=== PATIENT | male | born 1975 | race Hispanic/Latino ===

== ENCOUNTER 2017-05-08 02:09 | Inpatient (IN) | payer OTHER ==
[~2017-05-08] VITALS: Ht 165.1 cm; Wt 90.7 kg
[2017-05-08] VITALS (17 sets, daily range): BP systolic 123–149; BP diastolic 84–108
--- NOTE | 2017-05-08 02:33 | ED Chest Pain ---
General Stated Complaint: SOB,LEFT SIDE PAIN Source: patient, family Exam Limitations: language barrier (interpretation by family members) History of Present Illness Time seen by provider: 02:29 Initial Comments Patient reports for the last 3-4 weeks he has felt crummy and on the May he started having some left chest pain under his armpit that made it worse whenever he took a deep breath or coughed. He's had a cough but it's been dry nonproductive. No fevers chills nausea vomiting or exposure to anyone else sick. 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 He has no cardiac history he smokes only occasionally no thyroid her blood pressure that he knows of. He does not drink for the past 6 years and never used IV drugs. He does not recall any trauma hurting it or being in a car wreck strengthening similar to that. Allergies and Home Medications Allergies Coded Allergies: No Known Drug Allergies (Unverified , 05/08/17) Review of Systems Constitutional: chills, diaphoresis, fever, malaise EENTM: No Ear Pain, No Nose Congestion, No Nose Pain Respiratory: Cough (nonproductive.), Shortness of Air, Denies Wheezing Cardiovascular: Chest Pain (left chest wall worse on inspiration), Denies Edema , Denies Irregular Heart Rate, Denies Palpitations Gastrointestinal: Denies Abdomen Distended, Denies Abdominal Pain, Denies Diarrhea, Denies Nausea Genitourinary: Denies Burning, Denies Discharge Musculoskeletal: No back pain, No joint pain Skin: No pruritus, No rash Psychiatric/Neurological: Denies Headache, Denies Numbness Past Nvecjmt-Cecgzo-Snuuce Hx Patient Social History Alcohol Use: Denies Use (stop drinking 6 years ago.) Recreational Drug Use: No Smoking Status: Former Smoker (stop smoking 6 years ago.) Recent Foreign Travel: No Contact w/Someone Who Travel: No Physical Exam Vital Signs Vital Sign - Last 12Hours 05/08/17 05/08/17 02:25 03:10 Temp 102.8 Pulse 128 Resp 24 B/P (MAP) 154/85 Pulse Ox 94 O2 Delivery Room Air O2 Flow Rate 2.00 Capillary Refill : General Appearance: WD/WN, Anxious, Moderate Distress HEENT: PERRL/EOMI, Pharynx Normal Neck: Full Range of Motion, Supple Respiratory: Accessory Muscle Use, Decreased Breath Sounds (especially along left lower base), No Pleural Rub, No Rales, Respiratory Distress (moderate), No Wheezing Cardiovascular: Regular Rate, Rhythm, No Edema Gastrointestinal: Normal Bowel Sounds, Soft Extremity: Normal Capillary Refill, Non Tender, No Calf Tenderness, No Pedal Edema Neurologic/Psychiatric: Alert, Oriented x3 Skin: Normal Color, Warm/Dry Focused Exam Evaluation Sepsis Stage: Sepsis Possible Source: Pulmonary Time of Focused Exam: 06:44 Respiratory: No Crackles, No Rales, No Respiratory Distress, No Wheezing Cardiovascular: Regular Rate, Rhythm (tachycardia), No Edema, No Murmur, Normal Peripheral Pulses, Tachycardia Capillary Refill: Less Than 3 Seconds Peripheral Pulses: 3+ Dorsalis Pedis (R), 3+ Left Dors-Pedis (L), 3+ Radial Pulses (R), 3+ Radial Pulses (L) Skin: normal color, warm/dry, other (chest tube left axilla) Lactic Acid Level Laboratory Tests Test 05/08/17 02:40 Lactic Acid Level 1.36 MMOL/L (0.50-2.00) Chest Tube : Chest Tube Position: Left Chest Tube Location: Mid-Axillary Chest Size of Tunisian Tube (cm): 28 Chest Tube Procedure: betadine prep, sterile drapes applied, sterile dressing applied Anesthesia: 1% Lidocaine Volume Anesthetic (ccs): 5 Lora of Air Beltrami: Yes Number of Attempts: 1 Time of Successful Intubation: 04:30 Tube Drainage: source sinus and fogging Tube Sutured to Skin: Yes (pearling) Post Procedure CXR?: Yes Progress 18 cm of chest wall. 1 mg Versed was given for anxiolysis. The patient received 75 g of fentanyl. Another 50 g were given. 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 He accepted the risks and signed consent and we clean the site with chlorhexidine followed by iodine. Sterile drapes were then placed and using gowns masks and headgear the ribs were palpated and between the fourth and fifth rib 5 cc of lidocaine was injected first with a wheal and then was directed down to the between the intercostal space. 11 blade was then used to make a one half senna meter incision horizontally in the midaxillary line at the fourth fifth intercostal space. Using blunt dissection with my fingers and a hemostat tunnel was created down to the ribs and then using the hemostat to press through the intercostal space between the fifth and sixth rib a lora of air was felt in my finger was placed in there all where a sliding lung tissue was felt. A 28 Tunisian chest tube was then placed using a large clamp and immediately the tube fogged and there was a lora of air. The tube was then hooked up to a water seal and hooked to wall suction. Xeroform gauze was held around the site and then a Prolene suture was placed in a [id number] with a loop around the tube multiple times and secured tightly against the chest at 18 cm. Sterile dressing was then applied of gauze and tape. Good suction was assured at the water seal and the patient was marginally more comfortable. Post procedure chest x-ray was obtained and the tube was seen traveling along the line of the diaphragm and the lung was still not totally reinflated. Patient's sats stayed in the mid 90s the entire procedure. Patient did have some discomfort with procedure but tolerated otherwise well. Blood loss was 20to [address] Nguyen was called at 04 45 to come assess the patient. Critical Care Note Critical Care Start Time: 05:00 Stop Time: 05:40 Total Time (minutes) 40 mins Progress Laboratory distress with decreased breath sounds on left lower chest. Chest x- ray was not incredibly helpful so ultrasound bedside was placed and there was good lung sliding on the right side but not on the left. At that time decided to place a chest tube. See operative note. Post tube x-ray obtained and consultation was made with Dr. Nguyen who came and saw the patient examined images. Then discussed the images with stat read and then discussed stat read's read with Dr. Nguyen who feels patient is stable to be treated as a pneumonia and put inpatient. Progress/Results/Core Measures Results/Orders Lab Results Laboratory Tests Test 05/08/17 02:40 05/08/17 06:00 Range/Units White Blood Count 17.9 H 4.3-11.0 10^3/uL Red Blood Count 4.79 4.35-5.85 10^6/uL Hemoglobin 13.6 13.3-17.7 G/DL Hematocrit 40 40-54 % Mean Corpuscular Volume 84 80-99 FL Mean Corpuscular Hemoglobin 28 25-34 PG Mean Corpuscular Hemoglobin Concent 34 32-36 G/DL Red Cell Distribution Width 12.0 10.0-14.5 % Platelet Count 309 130-400 10^3/uL Mean Platelet Volume 10.1 7.4-10.4 FL Neutrophils (%) (Auto) 77 H 42-75 % Lymphocytes (%) (Auto) 10 L 12-44 % Monocytes (%) (Auto) 12 0-12 % Eosinophils (%) (Auto) 1 0-10 % Basophils (%) (Auto) 0 0-10 % Neutrophils # (Auto) 13.7 H 1.8-7.8 X 10^3 Lymphocytes # (Auto) 1.8 1.0-4.0 X 10^3 Monocytes # (Auto) 2.1 H 0.0-1.0 X 10^3 Eosinophils # (Auto) 0.2 0.0-0.3 10^3/uL Basophils # (Auto) 0.0 0.0-0.1 10^3/uL Neutrophils % (Manual) 74 % Lymphocytes % (Manual) 4 % Monocytes % (Manual) 14 % Eosinophils % (Manual) 2 % Basophils % (Manual) 0 % Band Neutrophils 0 % Reactive Lymphocytes 6 % Blood Morphology Comment NORMAL Prothrombin Time 14.3 12.2-14.7 SEC INR Comment 1.1 0.8-1.4 Activated Partial Thromboplast Time 30 24-35 SEC D-Dimer 0.77 H 0.00-0.49 UG/ML Sodium Level 137 135-145 MMOL/L Potassium Level 3.9 3.6-5.0 MMOL/L Chloride Level 103 98-107 MMOL/L Carbon Dioxide Level 20 L 21-32 MMOL/L Anion Gap 14 5-14 MMOL/L Blood Urea Nitrogen 15 7-18 MG/DL Creatinine 0.99 0.60-1.30 MG/DL Estimat Glomerular Filtration Rate > 60 BUN/Creatinine Ratio 15 Glucose Level 211 H 70-105 MG/DL Lactic Acid Level 1.36 0.50-2.00 MMOL/L Calcium Level 9.3 8.5-10.1 MG/DL Total Bilirubin 1.8 H 0.1-1.0 MG/DL Aspartate Amino Transf (AST/SGOT) 20 5-34 U/L Alanine Aminotransferase (ALT/SGPT) 45 0-55 U/L Alkaline Phosphatase 98 40-136 U/L Troponin I < 0.30 <0.30 NG/ML Total Protein 8.2 6.4-8.2 GM/DL Albumin 4.2 3.2-4.5 GM/DL Urine Color YELLOW Urine Clarity CLEAR Urine pH 5 5-9 Urine Specific [place] 1.020 1.016-1.022 Urine Protein 2+ H NEGATIVE Urine Glucose (UA) NEGATIVE NEGATIVE Urine Ketones NEGATIVE NEGATIVE Urine Nitrite NEGATIVE NEGATIVE Urine Bilirubin NEGATIVE NEGATIVE Urine Urobilinogen NORMAL NORMAL MG/DL Urine Leukocyte Esterase NEGATIVE NEGATIVE Urine RBC (Auto) 2+ H NEGATIVE Urine RBC RARE /HPF Urine WBC NONE /HPF Urine Squamous Epithelial Cells NONE /HPF Urine Crystals NONE /LPF Urine Bacteria NEGATIVE /HPF Urine Casts PRESENT /LPF Urine Hyaline Casts RARE /LPF Urine Mucus NEGATIVE /LPF Urine Culture Indicated NO My Orders Orders - CHANDAN QUINTANA Cbc With Automated Diff (05/08/17 02:34) Comprehensive Metabolic Panel (05/08/17 02:34) Lactic Acid Analyzer (05/08/17 02:34) Blood Culture (05/08/17 02:34) Sputum Culture (05/08/17 02:34) Ua Culture If Indicated (05/08/17 02:34) Protime With Inr (05/08/17 02:34) Partial Thromboplastin Time (05/08/17 02:34) O2 (05/08/17 02:34) Saline Lock/Iv-Start (05/08/17 02:34) Saline Lock/Iv-Start (05/08/17 02:34) Vital Signs Adult Sepsis Patie Q1HR (05/08/17 02:34) Remove Rings In Anticipation O (05/08/17 02:34) Chest Pa/Lat (2 View) (05/08/17 02:34) Fentanyl Injection (Sublimaze Injection (05/08/17 02:45) Troponin I (05/08/17 02:36) Fibrin Degradation Products (05/08/17 02:36) Ekg Tracing (05/08/17 02:36) Manual Differential (05/08/17 02:40) Fentanyl Injection (Sublimaze Injection (05/08/17 03:24) Saline Lock/Iv-Start (05/08/17 03:24) Ns Iv 1000 Ml (Sodium Chloride 0.9%) (05/08/17 03:24) Ns Iv 1000 Ml (Sodium Chloride 0.9%) (05/08/17 03:19) Midazolam Injection (Versed Injection) (05/08/17 03:57) Midazolam Injection (Versed Injection) (05/08/17 04:01) Chest 1 View, Ap/Pa Only (05/08/17 04:47) Fentanyl Injection (Sublimaze Injection (05/08/17 05:00) Fentanyl Injection (Sublimaze Injection (05/08/17 05:00) Fentanyl Injection (Sublimaze Injection (05/08/17 05:00) Ct Angio Chest W (05/08/17 05:05) Iohexol Injection (Omnipaque 350 Mg/Ml 1 (05/08/17 05:15) Ns (Ivpb) (Sodium Chloride 0.9% Ivpb Bag (05/08/17 05:15) Vancomycin Injection (Vancomycin Injecti (05/08/17 06:30) Piperacillin Sodium/Tazobactam (Zosyn Vi (05/08/17 06:30) Medications Given in ED Current Medications Medications Dose Ordered Sig/Gregory Route Start Time Stop Time Status Last Admin Dose Admin Fentanyl Citrate 25 mcg ONCE PRN IVP 05/08/17 05:00 05/08/17 04:22 25 MCG Fentanyl Citrate 25 mcg ONCE PRN IVP 05/08/17 05:00 05/08/17 04:24 25 MCG Fentanyl Citrate 25 mcg ONCE PRN IVP 05/08/17 05:00 05/08/17 04:59 25 MCG Fentanyl Citrate 50 mcg ONCE ONCE IVP 05/08/17 02:45 05/08/17 02:46 DC 05/08/17 03:08 50 MCG Iohexol 125 ml ONCE ONCE IV 05/08/17 05:15 05/08/17 06:24 DC 05/08/17 05:45 125 ML Piperacillin Sod/ Tazobactam Sod 4.5 gm/Sodium Chloride 100 ml @ 200 mls/hr ONCE ONCE IV 05/08/17 06:30 05/08/17 06:59 DC 05/08/17 06:37 200 MLS/HR Sodium Chloride 100 ml ONCE ONCE IV 05/08/17 05:15 05/08/17 06:24 DC 05/08/17 05:45 80 ML Sodium Chloride 1,000 ml @ 0 mls/hr Q0M ONCE IV 05/08/17 03:24 05/08/17 03:25 DC 05/08/17 03:29 999 MLS/HR Vital Signs/I&O Vital Sign - Last 12Hours 05/08/17 05/08/17 05/08/17 05/08/17 02:25 03:08 03:10 06:56 Temp 102.8 102.8 Pulse 128 102 Resp 24 34 B/P (MAP) 154/85 Pulse Ox 94 88 95 O2 Delivery Room Air Nasal Cannula Room Air O2 Flow Rate 2.00 Progress Note #1: Time: 03:26 Progress Note Fever tachycardia and shortness of air. We'll workup for sepsis but his chest x- ray is worrisome for his right-sided tracheal deviation and very poor inspiration. Not sure if that poor inspiration from pain versus possible pneumothorax. Because of her unborn status and a fever and possibility of a pneumothorax we'll put in 25 mask on him and bring him in isolation with concern of tuberculosis or other infectious disease. Pulmonary embolism is also in the running. Give Him a liter fluids and treat his pain and obtain a CTA. Progress Note #2: Time: 06:17 Progress Note Spoke with Vladislav Escobedo, stat read radiologist who felt that the patient's tube is sitting just above the diaphragm and there is no evidence of PE seen. 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 He sees a lot of platelike atelectasis. He does not see a traumatic hernia. Discussed this with Dr. Nguyen who feels the patient would be okay to be treated here and followed by Dr. Atwood, pulmonology. The patient is much more relaxed breathing slower and feeling much better. Pain is controlled. Progress Note #3: Time: 07:33 Progress Note Patient's breathing is no longer labored and he is without pain. He is doing very well and nursing transport to the ICU bed 1 is with him proparacaine to take him up. His vitals are stable however he is still modestly tachycardic in the low 100s. His sats stayed above 93% ever since having the chest tube placed. Diagnostic Imaging Diagonstic Imaging: Xray Plain Films/CT/US/NM/MRI: chest Comments Modest right-sided tracheal deviation with a little bit of rotation to the right. Very poor inspiration versus possible pneumothorax. No obvious infiltrates seen. Cardiac silhouette and mediastinum are obscured and difficult to delineate Diagonstic Imaging: CT Plain Films/CT/US/NM/MRI: chest (CTA) Comments Elevation left hemidiaphragm, no PE seen. No aneurysm or dissection. Left sided thoracostomy tube with a small left pneumothorax. Tube terminating in the medial inferior pleural space. I basilar platelike atelectasis. Left lower lobe atelectasis with possible superimposed pneumonia. Heart size normal without pericardial effusion. Reviewed: Reviewed [place] Study, Reviewed by Me, Discussed w/ Radiologist (Vladislav Escobedo) Departure Communication Time/Spoke to Admitting Phy: 05:45 Communication Okay to admit the patient to ICU. Pneumonia Admission Pseudomonal Risk: No known risk Antibiotic last taken at: 0600 Patient allergy/sensitivity/re: None Pneumonia order set available: CAP ICU Notes Vancomycin and Zosyn Impression Impression: Primary Impression: Community acquired pneumonia Additional Impression: Sepsis Qualified Codes: A41.9 - Sepsis, unspecified organism Disposition: ADMITTED INPATIENT (ICU) Condition: Improved Decision to Admit Reason: Admit from ER (General) Decision to Admit/Date: May 08, 2017 Time/Decision to Admit Time: 06:47 Departure-Patient Inst. Referrals: NO,LOCAL PHYSICIAN (PCP) Primary Care Physician CHANDAN QUINTANA May 08, 2017 02:33
[2017-05-08] MEDS ORDERED: fentaNYL INJECTION 100 MCG/2 ML AMP IVP ONE (02:45)
[2017-05-08 02:54] LABS: BASOPHILS % (AUTO) 0 % (0-10); EOSINOPHILS # (AUTO) 0.2 10^3/uL (0.0-0.3); EOSINOPHILS % (AUTO) 1 % (0-10); LYMPHOCYTES # (AUTO) 1.8 X 10^3 (1.0-4.0); LYMPHOCYTES % (AUTO) 10 % (12-44); MEAN CORPUSCULAR HEMOGLOBIN 28 PG (25-34); MEAN CORPUSCULAR HGB CONC 34 G/DL (32-36); MEAN CORPUSCULAR VOLUME 84 FL (80-99); MEAN PLATELET VOLUME 10.1 FL (7.4-10.4); MONOCYTES # (AUTO) 2.1 X 10^3 (0.0-1.0); MONOCYTES % (AUTO) 12 % (0-12); NEUTROPHILS # (AUTO) 13.7 X 10^3 (1.8-7.8); NEUTROPHILS % (AUTO) 77 % (42-75); PLATELET COUNT 309 10^3/uL (130-400); RED BLOOD COUNT 4.79 10^6/uL (4.35-5.85); WHITE BLOOD COUNT 17.9 10^3/uL (4.3-11.0)
[2017-05-08 03:05] LABS: INR 1.1 (0.8-1.4); PROTHROMBIN TIME PATIENT 14.3 SEC (12.2-14.7)
[2017-05-08 03:15] LABS: ALANINE AMINOTRANSFERASE 45 U/L (0-55); ALBUMIN 4.2 GM/DL (3.2-4.5); ANION GAP 14 MMOL/L (5-14); ASPARTATE AMINO TRANSFERASE 20 U/L (5-34); BILIRUBIN,TOTAL 1.8 MG/DL (0.1-1.0); BLOOD UREA NITROGEN 15 MG/DL (7-18); BUN/CREATININE RATIO 15; CALCIUM 9.3 MG/DL (8.5-10.1); CARBON DIOXIDE 20 MMOL/L (21-32); CHLORIDE 103 MMOL/L (98-107); CREATININE SERUM 0.99 MG/DL (0.60-1.30); GFR ESTIMATED > 60; GLUCOSE 211 MG/DL (70-105); POTASSIUM 3.9 MMOL/L (3.6-5.0); SODIUM 137 MMOL/L (135-145); TOTAL PROTEIN 8.2 GM/DL (6.4-8.2)
[2017-05-08] MEDS ORDERED: NS IV 1000 ML 1,000 ML ONE (03:19)
[2017-05-08 03:21] LABS: BAND NEUTROPHILS 0 %; BASOPHILS % (MANUAL) 0 %; EOSINOPHILS % (MANUAL) 2 %; LYMPHOCYTES % (MANUAL) 4 %; NEUTROPHILS % (MANUAL) 74 %; REACTIVE LYMPHOCYTES 6 %; TROPONIN I < 0.30 NG/ML (<0.30)
[2017-05-08] MEDS ORDERED: fentaNYL INJECTION 100 MCG/2 ML AMP IVP STA (03:24)
[2017-05-08] MEDS ORDERED: NS IV 1000 ML 1,000 ML IV ONE (03:24)
[2017-05-08] MEDS ORDERED: MIDAZOLAM 2 MG/2 ML (VERSED) VIAL ONE (03:57)
[2017-05-08] MEDS ORDERED: MIDAZOLAM 10 MG/2 ML (VERSED) VIAL IVP STA (04:01)
[2017-05-08] MEDS: fentaNYL INJECTION 100 MCG/2 ML AMP IVP PRN (04:22)
[2017-05-08] MEDS ORDERED: fentaNYL INJECTION 100 MCG/2 ML AMP IVP PRN ×2 (05:00)
[2017-05-08] MEDS ORDERED: NS 100 ML (IVPB) BAG IV ONE (05:15)
[2017-05-08] MEDS ORDERED: IOHEXOL 350 MG/ML 150 ML (OMNIPAQUE 350) VIAL IV ONE (05:15)
[2017-05-08 06:12] LABS: BILIRUBIN,URINE NEGATIVE (NEGATIVE); KETONES,URINE NEGATIVE (NEGATIVE); LEUKOCYTE ESTERASE ,URINE NEGATIVE (NEGATIVE); NITRITE,URINE NEGATIVE (NEGATIVE); PH,URINE 5 (5-9); PROTEIN,URINE 2+ (NEGATIVE); UROBILINOGEN,URINE NORMAL (NORMAL)
[2017-05-08 06:20] LABS: HYALINE CASTS, URINE RARE /LPF
[2017-05-08] MEDS ORDERED: PIPERACILLIN SODIUM/TAZOBACTAM 4.5 GM in NS (IVPB) 100 ML IV ONE (06:30)
[2017-05-08] MEDS ORDERED: VANCOMYCIN INJECTION 1,500 MG in NS IV 500 ML 500 ML IV SCH (06:30)
--- NOTE | 2017-05-08 07:16 | Consultation ---
History of Present Illness History of Present Illness Patient Consulted On(jenniffer/time) 05/08/17 07:11 Date Seen by Provider: May 08, 2017 Time Seen by Provider: 05:00 History of Present Illness Consult by Dr. Burnette for pneumothorax. Patient is a 41 year old male that has been having difficulty breathing and chest pain for about 3 weeks. Pain would vary in intensity and was along left chest. Patient states lifting and deep breathing would make pain worse. Nothing really making it better. Fever yesterday and today, now 102.8. Denies any trauma or other sick contacts. Patient was in respiratory distress when came in and was not oxygenating well, decreased breath sounds on left side, chest x ray was worrisome of pneumothorax and bedside u/s performed and chest tube performed by Dr. Burnette. He reported air lora when entering chest and upon arrival patient breathing easier and o2 saturation had improved. Medication Technician used. Allergies and Home Medications Allergies Coded Allergies: No Known Drug Allergies (Unverified , 05/08/17) Past Fbslcjg-Lpgnio-Zbsygr Hx Patient Social History Alcohol Use: Denies Use (stop drinking 6 years ago.) Recreational Drug Use: No Smoking Status: Former Smoker (stop smoking 6 years ago.) Type Used: Cigarettes Recent Foreign Travel: No Contact w/Someone Who Travel: No Recent Infectious Disease Expo: No Recent Hopitalizations: No Seasonal Allergies Seasonal Allergies: No Surgeries HX Surgeries: No Respiratory Hx Respiratory Disorders: No Cardiovascular Hx Cardiac Disorders: No Neurological Hx Neurological Disorders: No Genitourinary Hx Genitourinary Disorders: No Gastrointestinal Hx Gastrointestinal Disorders: No Musculoskeletal Hx Musculoskeletal Disorders: No Endocrine Hx Endocrine Disorders: No HEENT HX ENT Disorders: No Psychosocial Hx Psychiatric Problems: No Family Medical History Significant Family History: No Pertinent Family Hx Review of Systems-General Constitutional: see HPI, fever EENTM: no symptoms reported Respiratory: see HPI Cardiovascular: no symptoms reported Gastrointestinal: no symptoms reported Genitourinary: no symptoms reported Musculoskeletal: no symptoms reported Skin: no symptoms reported Psychiatric/Neurological: No Symptoms Reported Physical Exam-General Problems Physical Exam Vital Signs Vital Sign - Last 12Hours 05/08/17 05/08/17 02:25 03:10 Temp 102.8 Pulse 128 Resp 24 B/P (MAP) 154/85 Pulse Ox 94 O2 Delivery Room Air O2 Flow Rate 2.00 Capillary Refill : Less Than 3 Seconds General Appearance: mild distress HEENT: normal ENT inspection Neck: supple Respiratory: respiratory distress (left sided chest tube) Cardiovascular: tachycardia Gastrointestinal: non tender, soft, no organomegaly Rectal: deferred Back: normal inspection Extremities: non-tender, normal inspection Neurologic/Psychiatric: no motor/sensory deficits, alert, normal mood/affect, oriented x 3 Skin: warm/dry Data Review Labs Laboratory Tests 05/08/17 02:40: White Blood Count 17.9H, Red Blood Count 4.79, Hemoglobin 13.6, Hematocrit 40, Mean Corpuscular Volume 84, Mean Corpuscular Hemoglobin 28, Mean Corpuscular Hemoglobin Concent 34, Red Cell Distribution Width 12.0, Platelet Count 309, Mean Platelet Volume 10.1, Neutrophils (%) (Auto) 77H, Lymphocytes (%) (Auto) 10L, Monocytes (%) (Auto) 12, Eosinophils (%) (Auto) 1, Basophils (%) (Auto) 0, Neutrophils # (Auto) 13.7H, Lymphocytes # (Auto) 1.8, Monocytes # (Auto) 2.1H, Eosinophils # (Auto) 0.2, Basophils # (Auto) 0.0, Neutrophils % (Manual) 74, Lymphocytes % (Manual) 4, Monocytes % (Manual) 14, Eosinophils % (Manual) 2, Basophils % (Manual) 0, Band Neutrophils 0, Reactive Lymphocytes 6, Blood Morphology Comment NORMAL, Prothrombin Time 14.3, INR Comment 1.1, Activated Partial Thromboplast Time 30, D-Dimer 0.77H, Sodium Level 137, Potassium Level 3.9, Chloride Level 103, Carbon Dioxide Level 20L, Anion Gap 14, Blood Urea Nitrogen 15, Creatinine 0.99, Estimat Glomerular Filtration Rate > 60, BUN/ Creatinine Ratio 15, Glucose Level 211H, Lactic Acid Level 1.36, Calcium Level 9.3, Total Bilirubin 1.8H, Aspartate Amino Transf (AST/SGOT) 20, Alanine Aminotransferase (ALT/SGPT) 45, Alkaline Phosphatase 98, Troponin I < 0.30, Total Protein 8.2, Albumin 4.2 05/08/17 06:00: Urine Color YELLOW, Urine Clarity CLEAR, Urine pH 5, Urine Specific [place] 1.020, Urine Protein 2+H, Urine Glucose (UA) NEGATIVE, Urine Ketones NEGATIVE, Urine Nitrite NEGATIVE, Urine Bilirubin NEGATIVE, Urine Urobilinogen NORMAL, Urine Leukocyte Esterase NEGATIVE, Urine RBC (Auto) 2+H, Urine RBC RARE, Urine WBC NONE, Urine Squamous Epithelial Cells NONE, Urine Crystals NONE, Urine Bacteria NEGATIVE, Urine Casts PRESENT, Urine Hyaline Casts RARE, Urine Mucus NEGATIVE, Urine Culture Indicated NO Assessment/Plan Assessment/Plan Assessment/Plan Respiratory distress possible pneumothorax s/p left thoracostomy tube placement left lower lobepneumonia leukocytosis fever sepsis patient presented with respiratory distress and chest tube placed in ED by Dr. Burnette for concern of tension pneumothorax. At this time he is more comfortable and o2 saturation 95%. Patient to go for CT chest which demonstrates small pneumo on left and likely left lower lobe pneumonia. Chest tube appears to be just above diaphragm. Patient to be admitted for medical and thoracostomy tube management No surgical intervention needed. Clinical Quality Measures Pneumonia: Pseudomonal Risk: No known risk Antibiotic last taken at: 0600 CJ TRINIDAD DO May 08, 2017 07:16
--- NOTE | 2017-05-08 07:21 | Diagnostic Imaging Report ---
PROCEDURE: CT angiography of the chest with contrast. TECHNIQUE: Multiple contiguous axial images were obtained through the chest after uneventful bolus administration of intravenous contrast. Reconstructed CTA MIP acquisitions were also performed. INDICATION: Chest pain and shortness of breath. FINDINGS: There is elevation of the left hemidiaphragm. There is suboptimal evaluation of the pulmonary arteries due to respiratory motion. There are however no definitive filling defects seen within the pulmonary arteries to suggest pulmonary embolism. A left thoracostomy tube is in place. There is a small left pneumothorax. There is bibasilar subsegmental atelectasis and/or pneumonitis. There also appears to be more consolidated infiltrate in the left lung base which may reflect pneumonia. The heart size is normal. There is no pericardial fluid. Thoracic aorta is normal in caliber without evidence of an aneurysm. The visualized intra-abdominal structures are unremarkable. IMPRESSION: Suboptimal evaluation of the pulmonary arteries however no definitive filling defects to suggest pulmonary embolism. Bibasilar atelectasis and/or pneumonitis somewhat more consolidated in the left lung base. Superimposed pneumonia cannot be excluded. No other acute abnormality in the chest. Dictated by: Dictated on workstation # [id number]
--- NOTE | 2017-05-08 07:24 | Diagnostic Imaging Report ---
INDICATION: Left-sided chest tube placement. TECHNIQUE: Single view chest 4:45 AM. CORRELATION STUDY: 05/08/2017 FINDINGS: Since the prior imaging, a left-sided chest tube has been placed. A significant amount of subcutaneous gas over the left chest. No definitive pneumothorax. Continued opacification of the left mid and lower lung varela. Right lung field is hypoventilated with crowding of the lung bases. Heart size and mediastinum are generally stable but largely obscured. IMPRESSION: 1. Left-sided chest tube has been placed without significant pneumothorax. A significant amount of subcutaneous gas is present. 2. Hypoventilation with extensive crowding of the lung bases. Areas of atelectasis, infiltrate or contusion at the lung bases are present. Dictated by: Dictated on workstation # [id number]
--- NOTE | 2017-05-08 07:48 | Diagnostic Imaging Report ---
INDICATION: Chest pain and fever with shortness of breath. EXAM: PA and lateral views of the chest were obtained. FINDINGS: The heart size is normal. There is venous congestion. There is bibasilar atelectasis and/or pneumonitis, left greater than right. There is no pneumothorax. The mediastinum is unremarkable. IMPRESSION: Bibasilar atelectasis and/or pneumonitis, left greater than right. Moderate central pulmonary venous congestion. Dictated by: Dictated on workstation # [id number]
[2017-05-08] MEDS ORDERED: CATHETER FLUSH 10 ML SYR IV PRN (08:30)
[2017-05-08] MEDS ORDERED: ALPRAZolam 0.25 MG (XANAX) TAB PO PRN (10:15)
[2017-05-08] MEDS ORDERED: ONDANSETRON 4 MG/2 ML (SDV) Z0FRAN IVP PRN (10:15)
[2017-05-08] MEDS ORDERED: HYDROmorphone (DILAUDID) 2 MG/ML VIAL IVP PRN (10:15)
--- NOTE | 2017-05-08 11:22 | History & Physical-Hospitalist ---
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 Nguyen consulted and CT scan ensued. No significant pulmonary emboli noted on CT scan but patient appears to have pneumonia with the pneumothorax including leukocytosis and sepsis and I did order pain medication but tachypnea continues to Dr. Atwood will be consulted. Patient has been placed on empiric robotic some Zosyn and will be monitor closely in the meantime. I am able to communicate with him in medical Slovenian enough to reassure him and updated him on the plan. Source: patient Exam Limitations: language barrier Date Seen 05/08/17 Time Seen by Provider: 10:00 Attending Physician Aarti Conti DO PCP No,Local Physician Referring Physician Date of Admission May 08, 2017 at 07:04 Home Medications & Allergies Home Medications Reviewed patient Home Medication Reconciliation Form Allergies Allergies Coded Allergies No Known Drug Allergies (Unverified05/08/17) Past Ootcbkn-Wnsklg-Zmnugo Hx Patient Social History Employed/Student: employed Alcohol Use: Denies Use Recreational Drug Use: No Smoking Status: Current Everyday Smoker Type Used: Cigarettes Physical Abuse Screen: No Sexual Abuse: No Recent Foreign Travel: No Contact w/other who traveled: No Recent Hopitalizations: No Recent Infectious Disease Expo: No Seasonal Allergies Seasonal Allergies: No Surgeries HX Surgeries: No Respiratory Hx Respiratory Disorders: No Cardiovascular Hx Cardiovascular Disorders: No Neurological Hx Neurological Disorders: No Genitourinary Hx Genitourinary Disorders: No Gastrointestinal Hx Gastrointestinal Disorders: No Musculoskeletal Hx Musculoskeletal Disorders: No Endocrine Hx Endocrine Disorders: No HEENT HX ENT Disorders: No Cancer Hx Cancer: No Psychosocial Hx Psychiatric Problems: No Family Medical History Significant Family History: No Pertinent Family Hx Review of Systems Constitutional: see HPI, chills, diaphoresis, fever, malaise EENTM: no symptoms reported Respiratory: dyspnea on exertion, short of breath Cardiovascular: no symptoms reported Gastrointestinal: no symptoms reported Genitourinary: no symptoms reported Musculoskeletal: no symptoms reported Skin: no symptoms reported Psychiatric/Neurological: Anxiety All Other Systems Reviewed Negative Unless Noted: Yes Physical Exam Physical Exam Vital Signs Vital Sign - Last 12Hours 05/08/17 05/08/17 02:25 03:10 Temp 102.8 Pulse 128 Resp 24 B/P (MAP) 154/85 Pulse Ox 94 O2 Delivery Room Air O2 Flow Rate 2.00 Capillary Refill : Less Than 3 Seconds General Appearance: No Apparent Distress, WD/WN, Mild Distress (due to tachypnea) Eyes: Bilateral Eye Normal Inspection, Bilateral Eye PERRL HEENT: PERRL/EOMI, Normal ENT Inspection, Pharynx Normal Neck: Full Range of Motion, Normal Inspection, Non Tender, Supple, Carotid Bruit Respiratory: Chest Non Tender, No Accessory Muscle Use, No Respiratory Distress , Decreased Breath Sounds Cardiovascular: Regular Rate, Rhythm, No Edema, No Gallop, No JVD, No Murmur, Normal Peripheral Pulses Gastrointestinal: Normal Bowel Sounds, No Organomegaly, No Pulsatile Mass, Non Tender, Soft Back: Normal Inspection, No CVA Tenderness, No Vertebral Tenderness Extremity: Normal Capillary Refill, Normal Inspection, Normal Range of Motion, Non Tender, No Calf Tenderness, No Pedal Edema Neurologic/Psychiatric: Alert, Oriented x3, No Motor/Sensory Deficits, Normal Mood/Affect Skin: Normal Color, Warm/Dry Lymphatic: No Adenopathy Results Results/Procedures Lab Laboratory Tests 05/08/17 02:40 Assessment/Plan Admission Diagnosis Assessment: Sepsis due to pneumonia and leukocytosis and fever and chills with pneumothorax chest tube placed Smoker Assessment and Plan Plan: Pain medication of Dilaudid due to chest pain from tube smoking cessation SCDs Oxygen Nebulizer treatments Anxiolytic Antibiotics Check labs and chest x-ray daily Clinical Quality Measures DVT/VTE Risk/Contraindication: Risk Factor Score Per Nursin RFS Level Per Nursing on Admit: 2=Moderate Pneumonia: Pseudomonal Risk: No known risk Antibiotic last taken at: 0600 AARTI CONTI DO May 08, 2017 11:22
[2017-05-08] MEDS ORDERED: RT-ALBUTEROL/IPRATROPIUM 3 ML (DUONEB) VIAL INH SCH (13:45)
[2017-05-08] MEDS ORDERED: PHARMACY TO DOSE IV SCH (13:45)
[2017-05-08] MEDS: PIPERACILLIN SODIUM/TAZOBACTAM 4.5 GM in NS (IVPB) 100 ML IV SCH ×2 (13:50→20:31)
[2017-05-08] MEDS: NS IV 1000 ML 1,000 ML IV SCH ×2 (13:51→23:31)
--- NOTE | 2017-05-08 13:58 | Pulmonary Consultation ---
History of Present Illness History of Present Illness Date of Consultation 05/08/17 13:51 Time Seen by Provider: 13:51 Date of Admission History of Present Illness 41yo presented to ED secondary to CP and worsening SOB over last 3 wks worse with breathing. Pt only speaks Belarusian and family currently in the room do not speak Telugu either. Unable to obtain complete ROS. Fever in ED was 102.8. No trauma. CXR in ED shows prior to Chest tube shows bibasilar infiltrates, atelectasis and vascular congestion. PTX was dx in ED per clinical exam and symptoms. Left chest tube was placed. Pt is currently doing well and chest tube is in place. There is no air leak in chest tube system currently. Dr. Burnette reported air lora upon chest tube insertion and reported patient was breathing better. I am consulted for pulmonary management. Allergies and Home Medications Allergies Coded Allergies: No Known Drug Allergies (Unverified , 05/08/17) Past Npxeboy-Cfzrzp-Hskdpr Hx Patient Social History Alcohol Use: Denies Use Recreational Drug Use: No Smoking Status: Current Everyday Smoker Type Used: Cigarettes Recent Foreign Travel: No Contact w/Someone Who Travel: No Recent Infectious Disease Expo: No Recent Hopitalizations: No Physical Abuse Screen: No Sexual Abuse: No Seasonal Allergies Seasonal Allergies: No Surgeries HX Surgeries: No Respiratory Hx Respiratory Disorders: No Cardiovascular Hx Cardiac Disorders: No Neurological Hx Neurological Disorders: No Genitourinary Hx Genitourinary Disorders: No Gastrointestinal Hx Gastrointestinal Disorders: No Musculoskeletal Hx Musculoskeletal Disorders: No Endocrine Hx Endocrine Disorders: No HEENT HX ENT Disorders: No Cancer Hx Cancer: No Psychosocial Hx Psychiatric Problems: No Family Medical History Significant Family History: No Pertinent Family Hx Review of Systems Time Seen by Provider: 07:52 Exam Exam Vital Signs Date Time Temp Pulse Resp B/P (MAP) Pulse Ox O2 Delivery O2 Flow Rate FiO2 05/08/17 08:56 Nasal Cannula 2.00 05/08/17 08:00 95 Nasal Cannula 2.00 05/08/17 07:45 Nasal Cannula 2.00 05/08/17 07:45 98.2 Nasal Cannula 2.00 05/08/17 06:56 102 34 95 Room Air 05/08/17 03:10 88 Nasal Cannula 2.00 05/08/17 03:08 102.8 05/08/17 02:25 102.8 128 24 154/85 94 Room Air I & O 05/08/17 07:00 Intake Total 1000 ml Output Total 30 ml Balance 970 ml General Appearance: No Apparent Distress, WD/WN, Mild Distress (due to tachypnea) HEENT: PERRL/EOMI, Normal ENT Inspection, Pharynx Normal Neck: Full Range of Motion, Normal Inspection, Non Tender, Supple, Carotid Bruit Respiratory: Chest Non Tender, No Accessory Muscle Use, No Respiratory Distress , Decreased Breath Sounds Cardiovascular: Regular Rate, Rhythm, No Edema, No Gallop, No JVD, No Murmur, Normal Peripheral Pulses Capillary Refill: Less Than 3 Seconds Peripheral Pulses: 3+ Dorsalis Pedis (R), 3+ Left Dors-Pedis (L), 3+ Radial Pulses (R), 3+ Radial Pulses (L) Gastrointestinal: non tender, soft, no organomegaly Extremity: Normal Capillary Refill, Normal Inspection, Normal Range of Motion, Non Tender, No Calf Tenderness, No Pedal Edema Neurologic/Psychiatric: Alert, Oriented x3, No Motor/Sensory Deficits, Normal Mood/Affect Skin: Normal Color, Warm/Dry Lymphatic: No Adenopathy Results Lab Laboratory Tests 05/08/17 02:40 Assessment/Plan Assessment/Plan Left PTX s/p chest tube Pneumonia with sepsis (not severe sepsis) -Martinez culture -Abx currently on Zosyn will add vancomycin -Add NS at 100 cc/hr -Daily labs/CXR -IS DVT ppx -SCDs -start Lovenox tomorrow morning 255 Clinical Quality Measures DVT/VTE Risk/Contraindication: Risk Factor Score Per Nursin RFS Level Per Nursing on Admit: 2=Moderate Pneumonia: Pseudomonal Risk: No known risk Antibiotic last taken at: 0600 JAYLEN FARNSWORTH DO May 08, 2017 13:58
[2017-05-08] MEDS: CATHETER FLUSH 10 ML SYR IV SCH ×2 (14:08→21:59)
[2017-05-08] MEDS: RT-ALBUTEROL/IPRATROPIUM 3 ML (DUONEB) VIAL INH SCH ×2 (14:22→21:13)
[2017-05-08] MEDS: oxyCODONE/APAP 10/325MG (PERCOCET 10) TABLET PO PRN ×2 (16:29→22:11)
[2017-05-08] MEDS ORDERED: RT-ALBUTEROL/IPRATROPIUM 3 ML (DUONEB) VIAL INH PRN (17:00)
[2017-05-08] MEDS ORDERED: VANCOMYCIN 1250 MG/NS 250 ML IVPB IV SCH ×2 (19:00)
[2017-05-08] MEDS: VANCOMYCIN 1500 MG/NS 500 ML IVPB IV SCH ×2 (20:31)
[2017-05-08] MEDS: SENNA W/DOCUSATE (SENOKOT S) TABLET PO SCH (20:31)
[2017-05-08] MEDS: DOCUSATE SODIUM 100 MG (COLACE) CAP PO SCH (20:32)
[2017-05-08] MEDS: HYDROmorphone (DILAUDID) 2 MG/ML VIAL IVP PRN (20:55)
[2017-05-09] VITALS (24 sets, daily range): BP systolic 113–175; BP diastolic 38–105
[2017-05-09] MEDS: RT-ALBUTEROL/IPRATROPIUM 3 ML (DUONEB) VIAL INH SCH ×4 (02:17→20:48)
[2017-05-09] MEDS: HYDROmorphone (DILAUDID) 2 MG/ML VIAL IVP PRN (02:33)
[2017-05-09 04:46] LABS: BASOPHILS % (AUTO) 0 % (0-10); EOSINOPHILS # (AUTO) 0.1 10^3/uL (0.0-0.3); EOSINOPHILS % (AUTO) 0 % (0-10); LYMPHOCYTES # (AUTO) 1.9 X 10^3 (1.0-4.0); LYMPHOCYTES % (AUTO) 11 % (12-44); MEAN CORPUSCULAR HEMOGLOBIN 28 PG (25-34); MEAN CORPUSCULAR HGB CONC 32 G/DL (32-36); MEAN CORPUSCULAR VOLUME 88 FL (80-99); MEAN PLATELET VOLUME 10.4 FL (7.4-10.4); MONOCYTES # (AUTO) 1.8 X 10^3 (0.0-1.0); MONOCYTES % (AUTO) 10 % (0-12); NEUTROPHILS # (AUTO) 14.1 X 10^3 (1.8-7.8); NEUTROPHILS % (AUTO) 79 % (42-75); PLATELET COUNT 287 10^3/uL (130-400); RED BLOOD COUNT 4.29 10^6/uL (4.35-5.85); RED CELL DISTRIBUTION WIDTH 12.1 % (10.0-14.5); WHITE BLOOD COUNT 17.9 10^3/uL (4.3-11.0)
[2017-05-09] MEDS: CATHETER FLUSH 10 ML SYR IV SCH ×3 (05:00→22:00)
[2017-05-09 05:24] LABS: ALANINE AMINOTRANSFERASE 33 U/L (0-55); ALBUMIN 3.7 GM/DL (3.2-4.5); ANION GAP 10 MMOL/L (5-14); ANION GAP 11 MMOL/L (5-14); ASPARTATE AMINO TRANSFERASE 12 U/L (5-34); BILIRUBIN,TOTAL 1.8 MG/DL (0.1-1.0); BLOOD UREA NITROGEN 10 MG/DL (7-18); BUN/CREATININE RATIO 11; BUN/CREATININE RATIO 12; CALCIUM 8.4 MG/DL (8.5-10.1); CALCIUM 8.9 MG/DL (8.5-10.1); CARBON DIOXIDE 23 MMOL/L (21-32); CARBON DIOXIDE 24 MMOL/L (21-32); CHLORIDE 103 MMOL/L (98-107); CREATININE SERUM 0.85 MG/DL (0.60-1.30); CREATININE SERUM 0.89 MG/DL (0.60-1.30); GFR ESTIMATED > 60; GLUCOSE 166 MG/DL (70-105); GLUCOSE 169 MG/DL (70-105); MAGNESIUM 2.1 MG/DL (1.8-2.4); PHOSPHORUS 2.9 MG/DL (2.3-4.7); POTASSIUM 3.7 MMOL/L (3.6-5.0); SODIUM 137 MMOL/L (135-145); TOTAL PROTEIN 7.5 GM/DL (6.4-8.2)
[2017-05-09] MEDS: POTASSIUM CL 10MEQ/50ML IVPB 50 ML IV SCH (05:30)
[2017-05-09] MEDS: MAGNESIUM 1 GM/100 ML IVPB 100 ML IV SCH (05:31)
[2017-05-09] MEDS: KCL 20 MEQ TAB (K-DUR) PO SCH (05:31)
[2017-05-09] MEDS: PIPERACILLIN SODIUM/TAZOBACTAM 4.5 GM in NS (IVPB) 100 ML IV SCH ×3 (05:51→22:39)
[2017-05-09] MEDS: oxyCODONE/APAP 10/325MG (PERCOCET 10) TABLET PO PRN ×3 (07:58→22:00)
[2017-05-09] MEDS: SENNA W/DOCUSATE (SENOKOT S) TABLET PO SCH ×2 (07:58→21:36)
[2017-05-09] MEDS: DOCUSATE SODIUM 100 MG (COLACE) CAP PO SCH ×2 (08:00→21:35)
[2017-05-09] MEDS: VANCOMYCIN 1500 MG/NS 500 ML IVPB IV SCH ×4 (09:00→20:32)
[2017-05-09] MEDS: ACETAMINOPHEN 500 MG TAB (TYLENOL) PO PRN (09:04)
--- NOTE | 2017-05-09 09:32 | Diagnostic Imaging Report ---
INDICATION: Dyspnea. COMPARISON: Comparison made with prior examination 05/08/2017. FINDINGS: Heart size is stable. There is some venous congestion. There is bibasilar atelectasis and/or pneumonitis and small bilateral pleural effusions. No pneumothorax. IMPRESSION: 1. Bibasilar atelectasis and/or pneumonitis left greater than right with small bilateral pleural effusions. 2. Mild central pulmonary venous congestion. Dictated by: Dictated on workstation # [id number]
--- NOTE | 2017-05-09 11:52 | Progress Note-Hospitalist ---
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 Nguyen consulted and CT scan ensued. No significant pulmonary emboli noted on CT scan but patient appears to have pneumonia with the pneumothorax including leukocytosis and sepsis and I did order pain medication but tachypnea continues to Dr. Atwood will be consulted. Patient has been placed on empiric robotic some Zosyn and will be monitor closely in the meantime. I am able to communicate with him in medical Namibian enough to reassure him and updated him on the plan. Progress Notes/Assess & Plan Date Seen 05/09/17 Time Seen by Provider: 10:30 Admission Dx/Process Assessment: Sepsis due to pneumonia and leukocytosis and fever and chills with pneumothorax chest tube placed Smoker Diagonsis/Assessment & Plan Improved fever and now much better since OOB in chair upright CT still causing a bit of pain but much improved CXR reviewed Labs reviewed Instructed how to use the IS and continue slow deep breathing Tm 102, much improved, mother at bedside RRR, CTAB but significantly diminished overall No edema Laboratory Tests 05/09/17 03:27 Assessment: Sepsis due to pneumonia and leukocytosis and fever and chills with pneumothorax chest tube placed Smoker Leukocytosis Pleurisy Plan: Pain medication of Dilaudid due to chest pain from tube Smoking cessation SCDs Oxygen Nebulizer treatments Anxiolytic Antibiotics Check labs and chest x-ray daily IS Add Toradol Ambulate JOYCE RODRIGUEZ DO May 09, 2017 11:52
[2017-05-09] MEDS ORDERED: KETOROLAC 30 MG/ML VIAL IVP PRN (12:00)
[2017-05-09] MEDS ORDERED: KETOROLAC 30 MG/ML VIAL IVP NR (12:00)
[2017-05-09] MEDS: NS IV 1000 ML 1,000 ML IV SCH ×2 (12:31→19:46)
--- NOTE | 2017-05-09 14:56 | Progress Note ---
Subjective Date Seen by Provider: May 09, 2017 Time Seen by Provider: 14:50 Subjective/Events-last exam Patient feeling little bit better since sitting in chair. Breathing easier. Some pain more related to tube. T max 102.4 Denies any abdominal pain. No nausea or emesis. No air leak on chest tube. Objective Exam Vital Signs Date Time Temp Pulse Resp B/P (MAP) Pulse Ox O2 Delivery O2 Flow Rate FiO2 05/09/17 12:30 95 Nasal Cannula 3.00 05/09/17 12:30 99.3 Nasal Cannula 3.00 05/09/17 12:00 100 13 119/98 94 Nasal Cannula 3.00 05/09/17 11:00 111 14 140/82 95 Nasal Cannula 3.00 05/09/17 10:00 100.2 05/09/17 10:00 126 37 134/86 92 Nasal Cannula 3.00 05/09/17 09:04 102.4 05/09/17 09:00 124 24 133/85 92 Nasal Cannula 3.00 05/09/17 08:52 94 Nasal Cannula 4.00 05/09/17 08:02 102.3 Nasal Cannula 4.00 05/09/17 08:00 92 Nasal Cannula 4.00 05/09/17 08:00 112 19 152/96 95 Nasal Cannula 4.00 05/09/17 07:00 100 05/09/17 07:00 100 13 148/95 96 Nasal Cannula 4.00 05/09/17 06:00 108 22 151/105 94 Nasal Cannula 3.00 05/09/17 05:00 121 38 139/89 95 Nasal Cannula 3.00 05/09/17 04:37 98.1 05/09/17 04:00 92 Nasal Cannula 4.00 05/09/17 04:00 107 10 151/95 88 Nasal Cannula 3.00 05/09/17 03:00 114 10 164/88 89 Nasal Cannula 3.00 05/09/17 02:17 91 Nasal Cannula 3.00 05/09/17 02:00 116 28 134/98 91 Nasal Cannula 3.00 05/09/17 01:00 116 20 175/96 88 Nasal Cannula 3.00 05/09/17 01:00 115 05/09/17 00:00 116 16 139/93 91 Nasal Cannula 3.00 05/09/17 00:00 99.5 05/09/17 00:00 92 Nasal Cannula 3.00 05/08/17 23:00 107 13 139/92 94 Nasal Cannula 3.00 05/08/17 22:00 107 20 149/103 92 Nasal Cannula 3.00 05/08/17 21:13 93 Nasal Cannula 3.00 05/08/17 21:00 111 31 142/97 92 Nasal Cannula 3.00 05/08/17 20:29 97.1 112 28 136/97 93 Nasal Cannula 3.00 05/08/17 20:00 115 21 136/97 93 Nasal Cannula 3.00 05/08/17 20:00 94 Nasal Cannula 3.00 05/08/17 19:00 107 05/08/17 19:00 107 34 134/92 92 Nasal Cannula 3.00 05/08/17 18:00 115 38 125/96 90 Nasal Cannula 3.00 05/08/17 17:00 111 45 141/98 91 Nasal Cannula 3.00 05/08/17 16:35 95 Nasal Cannula 3.00 05/08/17 16:00 112 41 138/84 92 Nasal Cannula 3.00 05/08/17 15:00 105 35 132/101 93 Nasal Cannula 3.00 I & O 05/09/17 07:00 Intake Total 2515 ml Output Total 900 ml Balance 1615 ml Capillary Refill : Less Than 3 Seconds General Appearance: No Apparent Distress, WD/WN HEENT: PERRL/EOMI, Normal ENT Inspection Neck: Full Range of Motion, Normal Inspection, Non Tender, Supple, Carotid Bruit Respiratory: Chest Non Tender, No Accessory Muscle Use, No Respiratory Distress (breathing easier), Decreased Breath Sounds Cardiovascular: Regular Rate, Rhythm, No Edema, No Gallop, No JVD, No Murmur, Normal Peripheral Pulses Peripheral Pulses: 3+ Dorsalis Pedis (R), 3+ Left Dors-Pedis (L), 3+ Radial Pulses (R), 3+ Radial Pulses (L) Gastrointestinal: non tender, soft, no organomegaly Extremity: Normal Capillary Refill, Normal Inspection, Normal Range of Motion, Non Tender, No Calf Tenderness, No Pedal Edema Neurologic/Psychiatric: Alert, Oriented x3, No Motor/Sensory Deficits, Normal Mood/Affect Skin: Normal Color, Warm/Dry Lymphatic: No Adenopathy Results Lab Laboratory Tests 05/09/17 03:27: White Blood Count 17.9H, Red Blood Count 4.29L, Hemoglobin 12.2L, Hematocrit 38L , Mean Corpuscular Volume 88, Mean Corpuscular Hemoglobin 28, Mean Corpuscular Hemoglobin Concent 32, Red Cell Distribution Width 12.1, Platelet Count 287, Mean Platelet Volume 10.4, Neutrophils (%) (Auto) 79H, Lymphocytes (%) (Auto) 11L, Monocytes (%) (Auto) 10, Eosinophils (%) (Auto) 0, Basophils (%) (Auto) 0, Neutrophils # (Auto) 14.1H, Lymphocytes # (Auto) 1.9, Monocytes # (Auto) 1.8H, Eosinophils # (Auto) 0.1, Basophils # (Auto) 0.0, Sodium Level 137, Potassium Level 4.0, Chloride Level 103, Carbon Dioxide Level 23, Anion Gap 11, Blood Urea Nitrogen 10, Creatinine 0.85, Estimat Glomerular Filtration Rate > 60, BUN/ Creatinine Ratio 12, Glucose Level 166H, Calcium Level 8.4L, Phosphorus Level 2.9, Magnesium Level 2.1, Total Bilirubin 1.8H, Aspartate Amino Transf (AST/SGOT ) 12, Alanine Aminotransferase (ALT/SGPT) 33, Alkaline Phosphatase 93, Total Protein 7.5, Albumin 3.7 Microbiology 05/08/17 Blood Culture - Preliminary, Resulted No growth Assessment/Plan Assessment/Plan Assessment/Plan Respiratory distress possible pneumothorax s/p left thoracostomy tube placement left lower lobe pneumonia leukocytosis fever sepsis continue with current medical management no air leak, place chest tube to water seal, repeat chest x ray [address] Atwood and he will take over chest tube management tomorrow. Clinical Quality Measures DVT/VTE Risk/Contraindication: Risk Factor Score Per Nursin RFS Level Per Nursing on Admit: 2=Moderate Pneumonia: Pseudomonal Risk: No known risk Antibiotic last taken at: 0600 CJ TRINIDAD DO May 09, 2017 14:56
[2017-05-09] MEDS ORDERED: TROUGH ORDER-PHARMACY XX NR (19:00)
[2017-05-09] MEDS ORDERED: SIMETHICONE 80 MG (MYLICON) CHEW PO PRN (21:30)
[2017-05-09] MEDS: SIMETHICONE 80 MG (MYLICON) CHEW PO PRN (21:46)
[2017-05-10] VITALS (24 sets, daily range): BP systolic 92–148; BP diastolic 71–99
--- NOTE | 2017-05-10 00:06 | Diagnostic Imaging Report ---
INDICATION: Chest tube COMPARISON: Radiograph of the chest from the same day. TECHNIQUE: Single frontal radiograph of the chest dated May 09, 2017 FINDINGS: The left-sided chest tube is again identified, appearing similar to the prior examination. Cardiac silhouette is stable. No significant pulmonary vascular congestion. Low lung volumes, though slightly improved from the prior examination. Bibasilar opacities, left greater than right, are again identified. No significant right pleural effusion. Possible trace left pleural effusion. No right pneumothorax. No left-sided pneumothorax. Subcutaneous emphysema noted within the left lateral chest wall. Osseous structures appear stable. IMPRESSION: Slightly improved aeration of the lungs with persistent bibasilar atelectasis and/or pneumonitis and trace left basilar pleural effusion. Left basilar chest tube is in place without significant pneumothorax. Remainder of the examination appears stable. Dictated by: Dictated on workstation # [id number]
[2017-05-10] MEDS: NS IV 1000 ML 1,000 ML IV SCH ×2 (01:21→18:12)
[2017-05-10] MEDS: RT-ALBUTEROL/IPRATROPIUM 3 ML (DUONEB) VIAL INH SCH ×4 (02:16→21:11)
[2017-05-10 03:55] LABS: BASOPHILS % (AUTO) 0 % (0-10); EOSINOPHILS # (AUTO) 0.7 10^3/uL (0.0-0.3); EOSINOPHILS % (AUTO) 5 % (0-10); LYMPHOCYTES # (AUTO) 1.7 X 10^3 (1.0-4.0); LYMPHOCYTES % (AUTO) 12 % (12-44); MEAN CORPUSCULAR HEMOGLOBIN 28 PG (25-34); MEAN CORPUSCULAR HGB CONC 32 G/DL (32-36); MEAN CORPUSCULAR VOLUME 89 FL (80-99); MEAN PLATELET VOLUME 9.8 FL (7.4-10.4); MONOCYTES # (AUTO) 1.4 X 10^3 (0.0-1.0); MONOCYTES % (AUTO) 10 % (0-12); NEUTROPHILS % (AUTO) 73 % (42-75); PLATELET COUNT 263 10^3/uL (130-400); RED BLOOD COUNT 3.92 10^6/uL (4.35-5.85); RED CELL DISTRIBUTION WIDTH 12.1 % (10.0-14.5); WHITE BLOOD COUNT 13.8 10^3/uL (4.3-11.0)
[2017-05-10 04:31] LABS: ANION GAP 10 MMOL/L (5-14); BLOOD UREA NITROGEN 10 MG/DL (7-18); BUN/CREATININE RATIO 13; CALCIUM 8.7 MG/DL (8.5-10.1); CARBON DIOXIDE 26 MMOL/L (21-32); CHLORIDE 103 MMOL/L (98-107); CREATININE SERUM 0.79 MG/DL (0.60-1.30); GFR ESTIMATED > 60; GLUCOSE 141 MG/DL (70-105); PHOSPHORUS 2.9 MG/DL (2.3-4.7); POTASSIUM 3.8 MMOL/L (3.6-5.0); SODIUM 139 MMOL/L (135-145)
[2017-05-10] MEDS: PIPERACILLIN SODIUM/TAZOBACTAM 4.5 GM in NS (IVPB) 100 ML IV SCH ×3 (04:50→20:36)
[2017-05-10] MEDS: MAGNESIUM 1 GM/100 ML IVPB 100 ML IV SCH (06:00)
[2017-05-10] MEDS: POTASSIUM CL 10MEQ/50ML IVPB 50 ML IV SCH (06:00)
[2017-05-10] MEDS: CATHETER FLUSH 10 ML SYR IV SCH ×3 (06:00→20:36)
[2017-05-10] MEDS: KCL 20 MEQ TAB (K-DUR) PO SCH (06:00)
--- NOTE | 2017-05-10 08:09 | Pulmonary Progress Note ---
Subjective Time Seen by Provider: 07:00 Subjective/Events-last exam Pt appears to be doing better. He is getting up and walking. Exam Exam Vital Signs Date Time Temp Pulse Resp B/P (MAP) Pulse Ox O2 Delivery O2 Flow Rate FiO2 05/10/17 06:00 117 31 134/76 95 Nasal Cannula 3.00 05/10/17 05:00 97 22 134/94 96 Nasal Cannula 3.00 05/10/17 04:00 95 Nasal Cannula 3.00 05/10/17 04:00 98.8 94 11 122/78 98 Nasal Cannula 3.00 05/10/17 03:00 86 13 113/76 97 Nasal Cannula 3.00 05/10/17 02:16 98 Nasal Cannula 3.00 05/10/17 02:00 87 11 116/75 96 Nasal Cannula 3.00 05/10/17 01:00 89 05/10/17 01:00 90 10 124/71 95 Nasal Cannula 3.00 05/10/17 00:00 104 9 111/76 95 Nasal Cannula 3.00 05/10/17 00:00 99.2 05/10/17 00:00 95 Nasal Cannula 3.00 05/09/17 23:00 96 15 149/91 94 Nasal Cannula 3.00 05/09/17 22:00 112 39 113/38 95 Nasal Cannula 3.00 05/09/17 21:00 98 21 133/80 96 Nasal Cannula 3.00 05/09/17 20:48 96 Nasal Cannula 3.00 05/09/17 20:00 98.7 99 21 125/87 91 Nasal Cannula 3.00 05/09/17 20:00 96 Nasal Cannula 3.00 05/09/17 19:00 91 26 115/76 96 Nasal Cannula 3.00 05/09/17 19:00 99 05/09/17 18:00 106 25 115/100 98 Nasal Cannula 3.00 05/09/17 17:00 93 13 133/89 95 Nasal Cannula 3.00 05/09/17 16:25 95 Nasal Cannula 3.00 05/09/17 16:00 96 10 141/100 95 Nasal Cannula 3.00 05/09/17 15:00 107 34 122/90 96 Nasal Cannula 3.00 05/09/17 14:58 94 Nasal Cannula 3.00 05/09/17 14:00 106 29 124/64 94 Nasal Cannula 3.00 05/09/17 13:00 114 26 123/80 95 Nasal Cannula 3.00 05/09/17 13:00 114 05/09/17 12:30 95 Nasal Cannula 3.00 05/09/17 12:30 99.3 Nasal Cannula 3.00 05/09/17 12:00 100 13 119/98 94 Nasal Cannula 3.00 05/09/17 11:00 111 14 140/82 95 Nasal Cannula 3.00 05/09/17 10:00 100.2 05/09/17 10:00 126 37 134/86 92 Nasal Cannula 3.00 05/09/17 09:04 102.4 05/09/17 09:00 124 24 133/85 92 Nasal Cannula 3.00 05/09/17 08:52 94 Nasal Cannula 4.00 I & O 05/10/17 07:00 Intake Total 5848 ml Output Total 755 ml Balance 5093 ml General Appearance: No Apparent Distress, WD/WN, Mild Distress (due to tachypnea) HEENT: PERRL/EOMI, Normal ENT Inspection, Pharynx Normal Neck: Full Range of Motion, Normal Inspection, Non Tender, Supple, Carotid Bruit Respiratory: Chest Non Tender, No Accessory Muscle Use, No Respiratory Distress , Decreased Breath Sounds Cardiovascular: Regular Rate, Rhythm, No Edema, No Gallop, No JVD, No Murmur, Normal Peripheral Pulses Capillary Refill: Less Than 3 Seconds Peripheral Pulses: 3+ Dorsalis Pedis (R), 3+ Left Dors-Pedis (L), 3+ Radial Pulses (R), 3+ Radial Pulses (L) Gastrointestinal: non tender, soft, no organomegaly Extremity: Normal Capillary Refill, Normal Inspection, Normal Range of Motion, Non Tender, No Calf Tenderness, No Pedal Edema Neurologic/Psychiatric: Alert, Oriented x3, No Motor/Sensory Deficits, Normal Mood/Affect Skin: Normal Color, Warm/Dry Lymphatic: No Adenopathy Results Lab Laboratory Tests 05/09/17 03:27 05/10/17 03:30 Assessment/Plan Assessment/Plan Left PTX s/p chest tube pulmonary edema/pleural effusion and atelectasis -Send pleural fluid for analysis -Clamp chest tube today and repeat CXR in 4 hrs. Pneumonia with sepsis (not severe sepsis) -Martinez culture -Abx currently on Zosyn will add vancomycin -KVO IVF -Daily labs/CXR -IS DVT ppx -SCDs -start Lovenox tomorrow morning 233 60 min spent with patient and medical team including Dr. Nguyen and RNs explaining plan of care and current medical status. Clinical Quality Measures DVT/VTE Risk/Contraindication: Risk Factor Score Per Nursin RFS Level Per Nursing on Admit: 2=Moderate Pneumonia: Pseudomonal Risk: No known risk Antibiotic last taken at: 0600 JAYLEN FARNSWORTH DO May 10, 2017 08:09
[2017-05-10] MEDS: oxyCODONE/APAP 10/325MG (PERCOCET 10) TABLET PO PRN ×3 (09:01→22:26)
[2017-05-10] MEDS: DOCUSATE SODIUM 100 MG (COLACE) CAP PO SCH ×2 (09:13→20:36)
[2017-05-10] MEDS: SENNA W/DOCUSATE (SENOKOT S) TABLET PO SCH ×2 (09:13→20:36)
--- NOTE | 2017-05-10 09:13 | Diagnostic Imaging Report ---
INDICATION: Shortness of breath. Portable chest 6:00 AM. There is atelectasis at both lung bases. There is mild pulmonary vascular congestion. There are no appreciable effusions or pneumothoraces. Left thoracostomy tube remains in place. IMPRESSION: Basilar atelectasis with pulmonary vascular congestion. No significant change compared to previous day. Dictated by: Dictated on workstation # [id number]
[2017-05-10] MEDS: SIMETHICONE 80 MG (MYLICON) CHEW PO PRN (09:14)
[2017-05-10] MEDS: VANCOMYCIN 1500 MG/NS 500 ML IVPB IV SCH ×4 (09:15→15:53)
[2017-05-10] MEDS ORDERED: IBUP-2055 PO (09:21)
--- NOTE | 2017-05-10 12:35 | Progress Note-Hospitalist ---
Standard Progress Note Progress Notes/Assess & Plan Date Seen 05/10/17 Time Seen by Provider: 12:29 Diagnosis Assessment: Sepsis due to pneumonia and leukocytosis and fever and chills with pneumothorax chest tube placed Smoker Assess & Plan/Chief Complaint The patient is a 41-year-old Croatian-speaking patient. He was admitted with apparent pneumonia and sepsis. There was leukocytosis and fever at his presentation in the emergency room. Labs Laboratory Tests 05/09/17 03:27 05/10/17 03:30 FRANCIS FRENCH MD May 10, 2017 12:35
--- NOTE | 2017-05-10 14:36 | Diagnostic Imaging Report ---
EXAMINATION: Portable upright radiograph of the chest. INDICATION: Left chest tube clamped for 4 hours. FINDINGS: A left chest tube is in place. There is left basilar infiltrate or atelectasis. There are low lung volumes seen. There is no pneumothorax. Right basilar atelectasis is also seen. The heart size is at the upper limits of normal. Subcutaneous soft tissue air along the left hemithorax is noted. IMPRESSION: Low lung volumes with bibasilar infiltrate or atelectasis. No pneumothorax. Dictated by: Dictated on workstation # [id number]
[2017-05-11] VITALS (13 sets, daily range): BP systolic 114–168; BP diastolic 9–101
[2017-05-11] MEDS: VANCOMYCIN 1500 MG/NS 500 ML IVPB IV SCH ×4 (00:51→09:24)
[2017-05-11] MEDS: RT-ALBUTEROL/IPRATROPIUM 3 ML (DUONEB) VIAL INH SCH ×3 (02:56→19:54)
[2017-05-11] MEDS: CATHETER FLUSH 10 ML SYR IV SCH ×3 (03:56→20:02)
[2017-05-11 04:01] LABS: BASOPHILS % (AUTO) 0 % (0-10); EOSINOPHILS # (AUTO) 0.8 10^3/uL (0.0-0.3); EOSINOPHILS % (AUTO) 7 % (0-10); LYMPHOCYTES # (AUTO) 2.4 X 10^3 (1.0-4.0); LYMPHOCYTES % (AUTO) 22 % (12-44); MEAN CORPUSCULAR HEMOGLOBIN 28 PG (25-34); MEAN CORPUSCULAR HGB CONC 32 G/DL (32-36); MEAN CORPUSCULAR VOLUME 88 FL (80-99); MEAN PLATELET VOLUME 9.7 FL (7.4-10.4); MONOCYTES % (AUTO) 9 % (0-12); NEUTROPHILS # (AUTO) 6.8 X 10^3 (1.8-7.8); NEUTROPHILS % (AUTO) 62 % (42-75); PLATELET COUNT 303 10^3/uL (130-400); RED BLOOD COUNT 3.84 10^6/uL (4.35-5.85)
[2017-05-11 04:20] LABS: PHOSPHORUS 3.2 MG/DL (2.3-4.7)
[2017-05-11] MEDS: MAGNESIUM 1 GM/100 ML IVPB 100 ML IV SCH (04:32)
[2017-05-11 05:00] LABS: ANION GAP 16 MMOL/L (5-14); BLOOD UREA NITROGEN 8 MG/DL (7-18); BUN/CREATININE RATIO 11; CARBON DIOXIDE 25 MMOL/L (21-32); CHLORIDE 99 MMOL/L (98-107); CREATININE SERUM 0.72 MG/DL (0.60-1.30); GFR ESTIMATED > 60; GLUCOSE 184 MG/DL (70-105); SODIUM 140 MMOL/L (135-145)
[2017-05-11 05:32] LABS: CALCIUM 8.9 MG/DL (8.5-10.1); POTASSIUM 3.6 MMOL/L (3.6-5.0)
[2017-05-11] MEDS: POTASSIUM CL 10MEQ/50ML IVPB 50 ML IV SCH (05:34)
[2017-05-11] MEDS: KCL 20 MEQ TAB (K-DUR) PO SCH (05:53)
[2017-05-11] MEDS: PIPERACILLIN SODIUM/TAZOBACTAM 4.5 GM in NS (IVPB) 100 ML IV SCH ×3 (05:59→20:02)
[2017-05-11] MEDS ORDERED: TROUGH ORDER-PHARMACY XX NR (07:00)
--- NOTE | 2017-05-11 07:00 | Pulmonary Progress Note ---
Subjective Time Seen by Provider: 14:05 Subjective/Events-last exam Pt feels improved No chest tube leak in system. I am consulted for pulmonary management. Exam Exam Vital Signs Date Time Temp Pulse Resp B/P (MAP) Pulse Ox O2 Delivery O2 Flow Rate FiO2 05/11/17 06:18 100 Nasal Cannula 2.00 05/11/17 06:00 90 15 135/101 100 Nasal Cannula 1.00 05/11/17 05:00 98 31 141/95 99 Nasal Cannula 3.00 05/11/17 04:00 95 Nasal Cannula 3.00 05/11/17 04:00 113 48 128/85 89 Nasal Cannula 3.00 05/11/17 03:00 98 20 117/9 100 Nasal Cannula 3.00 05/11/17 02:56 98 Nasal Cannula 3.00 05/11/17 02:00 90 11 119/90 97 Nasal Cannula 3.00 05/11/17 01:00 87 11 114/74 97 Nasal Cannula 3.00 05/11/17 01:00 87 05/11/17 00:49 98.1 05/11/17 00:00 96 14 119/81 96 Nasal Cannula 3.00 05/11/17 00:00 94 Nasal Cannula 3.00 05/10/17 23:00 109 26 127/85 97 Nasal Cannula 3.00 05/10/17 22:00 109 35 135/96 94 Nasal Cannula 3.00 05/10/17 21:12 98 Nasal Cannula 3.00 05/10/17 21:00 105 38 135/99 95 Nasal Cannula 3.00 05/10/17 20:32 99.1 05/10/17 20:00 97 Nasal Cannula 3.00 05/10/17 20:00 96 25 117/89 93 Nasal Cannula 3.00 05/10/17 19:00 96 19 123/86 92 Nasal Cannula 3.00 05/10/17 19:00 101 05/10/17 18:00 104 11 128/79 92 Nasal Cannula 3.00 05/10/17 17:00 109 14 144/78 96 Nasal Cannula 3.00 05/10/17 16:00 120 32 144/84 96 Nasal Cannula 3.00 05/10/17 16:00 95 Nasal Cannula 3.00 05/10/17 15:05 97 Nasal Cannula 3.50 05/10/17 15:00 108 18 148/87 95 Nasal Cannula 3.00 05/10/17 14:00 92 21 92/74 05/10/17 13:00 98 19 126/72 Nasal Cannula 3.00 05/10/17 13:00 97 05/10/17 12:00 100.1 101 23 135/90 95 Nasal Cannula 3.00 05/10/17 12:00 95 Nasal Cannula 3.00 05/10/17 11:00 105 11 138/90 05/10/17 10:00 117 16 143/89 90 Nasal Cannula 3.00 05/10/17 09:07 94 Nasal Cannula 3.50 05/10/17 09:00 98 30 108/71 94 Nasal Cannula 3.00 05/10/17 08:00 95 21 119/83 94 Nasal Cannula 3.00 05/10/17 08:00 95 Nasal Cannula 3.00 05/10/17 07:00 98.0 99 22 129/84 95 Nasal Cannula 3.00 05/10/17 07:00 93 I & O 05/11/17 07:00 Intake Total 3790 ml Output Total 2290 ml Balance 1500 ml General Appearance: No Apparent Distress, WD/WN HEENT: PERRL/EOMI, Normal ENT Inspection, Pharynx Normal Neck: Full Range of Motion, Normal Inspection, Non Tender, Supple, Carotid Bruit Respiratory: Chest Non Tender, No Accessory Muscle Use, No Respiratory Distress , Decreased Breath Sounds Cardiovascular: Regular Rate, Rhythm, No Edema, No Gallop, No JVD, No Murmur, Normal Peripheral Pulses Capillary Refill: Less Than 3 Seconds Peripheral Pulses: 3+ Dorsalis Pedis (R), 3+ Left Dors-Pedis (L), 3+ Radial Pulses (R), 3+ Radial Pulses (L) Gastrointestinal: non tender, soft, no organomegaly Extremity: Normal Capillary Refill, Normal Inspection, Normal Range of Motion, Non Tender, No Calf Tenderness, No Pedal Edema Neurologic/Psychiatric: Alert, Oriented x3, No Motor/Sensory Deficits, Normal Mood/Affect Skin: Normal Color, Warm/Dry Lymphatic: No Adenopathy Results Lab Laboratory Tests 05/10/17 03:30 05/11/17 03:36 Assessment/Plan Assessment/Plan Left PTX s/p chest tube pulmonary edema/pleural effusion and atelectasis -Send pleural fluid for analysis -Chest tube has been clamped since yesterday. -will D/C chest tube now Pneumonia with sepsis (not severe sepsis) -Martinez culture -Abx currently on Zosyn vancomycin -hep lock IVF -Daily labs/CXR -IS DVT ppx -SCDs -start Lovenox tomorrow morning 233 120min spent with patient and medical team. Clinical Quality Measures DVT/VTE Risk/Contraindication: Risk Factor Score Per Nursin RFS Level Per Nursing on Admit: 2=Moderate Pneumonia: Pseudomonal Risk: No known risk Antibiotic last taken at: 0600 JAYLEN FARNSWORTH DO May 11, 2017 07:00
[2017-05-11] MEDS ORDERED: morphine INJ 4 MG/ML 1 ML (VIAL/SYRINGE) ONE (08:22)
--- NOTE | 2017-05-11 08:47 | Diagnostic Imaging Report ---
INDICATION: Shortness of breath, followup chest tube. COMPARISON STUDY: Chest from yesterday. FINDINGS: A frontal view of the chest demonstrates a left chest tube remaining, unchanged in position. There is no pneumothorax. The bilateral pulmonary infiltrates and a left pleural effusion are stable. IMPRESSION: There has been no significant change. Dictated by: Dictated on workstation # [id number]
[2017-05-11] MEDS: DOCUSATE SODIUM 100 MG (COLACE) CAP PO SCH ×2 (09:20→20:01)
[2017-05-11] MEDS: SIMETHICONE 80 MG (MYLICON) CHEW PO PRN (09:20)
[2017-05-11] MEDS: SENNA W/DOCUSATE (SENOKOT S) TABLET PO SCH ×2 (09:20→20:01)
--- NOTE | 2017-05-11 14:38 | Progress Note-Hospitalist ---
Standard Progress Note Progress Notes/Assess & Plan Date Seen 05/11/17 Time Seen by Provider: 14:13 Diagnosis Assessment: Sepsis due to pneumonia and leukocytosis and fever and chills with pneumothorax chest tube placed Smoker Assess & Plan/Chief Complaint The patient reports that he is feeling much more comfortable with the removal of the chest tube. There is been no change in vital signs since that removal. He is eating without difficulty. His vital signs are stable. Physical exam: He is sitting up in the chair eating when I visited. He is able to take a deep breath without splinting. CV is regular without murmur. Abdomen is soft without masses or tenderness. Impression: Pneumonia/sepsis Plan continue antibiotics. Begin discharge planning. Labs Laboratory Tests 05/10/17 03:30 05/11/17 03:36 FRANCIS FRENCH MD May 11, 2017 14:38
[2017-05-11] MEDS: oxyCODONE/APAP 10/325MG (PERCOCET 10) TABLET PO PRN (18:50)
[2017-05-12] VITALS (7 sets, daily range): BP systolic 104–135; BP diastolic 73–95
[2017-05-12] MEDS: RT-ALBUTEROL/IPRATROPIUM 3 ML (DUONEB) VIAL INH SCH ×4 (04:09→21:00)
[2017-05-12] MEDS: PIPERACILLIN SODIUM/TAZOBACTAM 4.5 GM in NS (IVPB) 100 ML IV SCH ×3 (04:15→20:53)
[2017-05-12] MEDS: ACETAMINOPHEN 500 MG TAB (TYLENOL) PO PRN (04:20)
[2017-05-12 04:45] LABS: BASOPHILS % (AUTO) 0 % (0-10); EOSINOPHILS # (AUTO) 0.6 10^3/uL (0.0-0.3); EOSINOPHILS % (AUTO) 6 % (0-10); LYMPHOCYTES % (AUTO) 20 % (12-44); MEAN CORPUSCULAR HEMOGLOBIN 29 PG (25-34); MEAN CORPUSCULAR HGB CONC 33 G/DL (32-36); MEAN CORPUSCULAR VOLUME 87 FL (80-99); MEAN PLATELET VOLUME 9.8 FL (7.4-10.4); MONOCYTES % (AUTO) 10 % (0-12); NEUTROPHILS # (AUTO) 6.4 X 10^3 (1.8-7.8); NEUTROPHILS % (AUTO) 64 % (42-75); PLATELET COUNT 341 10^3/uL (130-400); RED BLOOD COUNT 3.71 10^6/uL (4.35-5.85); RED CELL DISTRIBUTION WIDTH 12.1 % (10.0-14.5); WHITE BLOOD COUNT 9.9 10^3/uL (4.3-11.0)
[2017-05-12 04:59] LABS: ANION GAP 9 MMOL/L (5-14); BLOOD UREA NITROGEN 12 MG/DL (7-18); BUN/CREATININE RATIO 16; CALCIUM 9.2 MG/DL (8.5-10.1); CARBON DIOXIDE 27 MMOL/L (21-32); CHLORIDE 105 MMOL/L (98-107); CREATININE SERUM 0.74 MG/DL (0.60-1.30); GFR ESTIMATED > 60; GLUCOSE 100 MG/DL (70-105); MAGNESIUM 2.1 MG/DL (1.8-2.4); PHOSPHORUS 4.3 MG/DL (2.3-4.7); POTASSIUM 3.5 MMOL/L (3.6-5.0); SODIUM 141 MMOL/L (135-145)
[2017-05-12] MEDS: CATHETER FLUSH 10 ML SYR IV SCH ×3 (05:57→22:00)
[2017-05-12] MEDS: NS IV 1000 ML 1,000 ML IV SCH (05:57)
--- NOTE | 2017-05-12 08:25 | Diagnostic Imaging Report ---
Portable erect AP chest at 408 hours. INDICATION: Respiratory distress. 2 AP views were obtained. FINDINGS: As noted on the prior exam of 05/11/17, both lung bases are obscured by atelectasis/infiltrate and fluid, particularly the left lung base. Those findings are again evident and no different on this exam. The upper lungs remain relatively clear. The heart is difficult to assess but seems stable when compared to the prior study. The osseous structures are intact. IMPRESSION: Stable chest. There has been no significant change since the prior study. A followup exam would be recommended for continued evaluation. Dictated by: Dictated on workstation # [id number]
[2017-05-12] MEDS: DOCUSATE SODIUM 100 MG (COLACE) CAP PO SCH ×2 (09:40→20:53)
[2017-05-12] MEDS: SENNA W/DOCUSATE (SENOKOT S) TABLET PO SCH ×2 (09:41→20:53)
--- NOTE | 2017-05-12 10:48 | Progress Note-Hospitalist ---
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 Nguyen consulted and CT scan ensued. No significant pulmonary emboli noted on CT scan but patient appears to have pneumonia with the pneumothorax including leukocytosis and sepsis and I did order pain medication but tachypnea continues to Dr. Atwood will be consulted. Patient has been placed on empiric robotic some Zosyn and will be monitor closely in the meantime. I am able to communicate with him in medical [place] enough to reassure him and updated him on the plan. 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 Pt was at 81 within 3 minutes of exertion Pt needs 2 L on exertion, but pt was at 92 on room air Patient Interview: Pt is doing well and was sitting up in bed upon interview Pt confirms using IS Physical exam stable. Lungs sound good. Home O2 discussed. Encouragement given to ambulate DC was discussed much improved, VSS RRR, CTAB but significantly diminished overall No edema Assessment: Sepsis due to pneumonia and leukocytosis and fever and chills with pneumothorax chest tube placed now DC Smoker 3ppd Leukocytosis Pleurisy Plan: Ambulate PT 2 L O2 needed at DC orders placed Hopefully DC tomorrow Scribed by Odalis Love under the direct supervision of Dr. Rodriguez. JOYCE RODRIGUEZ DO May 12, 2017 10:48
--- NOTE | 2017-05-12 11:33 | Pulmonary Progress Note ---
Subjective Time Seen by Provider: 11:32 Subjective/Events-last exam PT appears much improved. He is getting ready to walk halls. Exam Exam Vital Signs Date Time Temp Pulse Resp B/P (MAP) Pulse Ox O2 Delivery O2 Flow Rate FiO2 05/12/17 11:24 96.2 97 18 104/73 96 Nasal Cannula 2.00 05/12/17 11:23 96 Nasal Cannula 2.00 05/12/17 10:24 94 2.00 05/12/17 09:32 94 Nasal Cannula 2.00 05/12/17 08:23 95 Nasal Cannula 2.00 05/12/17 08:00 97.8 95 20 122/83 95 Nasal Cannula 2.00 05/12/17 07:00 85 05/12/17 04:52 98.8 05/12/17 04:52 98.8 05/12/17 04:20 100.2 05/12/17 04:18 100.2 119/82 Nasal Cannula 2.00 05/12/17 04:09 94 Nasal Cannula 2.00 05/12/17 04:00 95 Nasal Cannula 2.00 05/12/17 01:00 82 05/12/17 00:00 96 Nasal Cannula 2.00 05/11/17 20:54 100 Nasal Cannula 2.00 05/11/17 20:00 94 Nasal Cannula 2.00 05/11/17 19:31 99.6 98 27 140/100 94 Nasal Cannula 2.00 05/11/17 19:00 97 05/11/17 16:00 100.3 104 27 168/97 92 Room Air 05/11/17 16:00 95 Nasal Cannula 1.00 05/11/17 13:00 99 05/11/17 12:00 100.7 106 28 148/92 98 Room Air I & O 05/12/17 07:00 Intake Total 2250 ml Output Total 2950 ml Balance -700 ml General Appearance: No Apparent Distress, WD/WN HEENT: PERRL/EOMI, Normal ENT Inspection, Pharynx Normal Neck: Full Range of Motion, Normal Inspection, Non Tender, Supple, Carotid Bruit Respiratory: Chest Non Tender, No Accessory Muscle Use, No Respiratory Distress , Decreased Breath Sounds Cardiovascular: Regular Rate, Rhythm, No Edema, No Gallop, No JVD, No Murmur, Normal Peripheral Pulses Capillary Refill: Less Than 3 Seconds Peripheral Pulses: 3+ Dorsalis Pedis (R), 3+ Left Dors-Pedis (L), 3+ Radial Pulses (R), 3+ Radial Pulses (L) Gastrointestinal: non tender, soft, no organomegaly Extremity: Normal Capillary Refill, Normal Inspection, Normal Range of Motion, Non Tender, No Calf Tenderness, No Pedal Edema Neurologic/Psychiatric: Alert, Oriented x3, No Motor/Sensory Deficits, Normal Mood/Affect Skin: Normal Color, Warm/Dry Lymphatic: No Adenopathy Results Lab Laboratory Tests 05/11/17 03:36 05/12/17 03:24 Assessment/Plan Assessment/Plan Left PTX s/p chest tube pulmonary edema/pleural effusion and atelectasis- improving Pneumonia with sepsis (not severe sepsis) -Martinez culture -Abx currently on Zosyn -hep lock IVF -Daily labs/CXR -IS DVT ppx -SCDs -start Lovenox tomorrow morning 233 Pt is doing better will transfer him to 4th floor. Pt will probably need home oxygen upon discharge. Clinical Quality Measures DVT/VTE Risk/Contraindication: Risk Factor Score Per Nursin RFS Level Per Nursing on Admit: 2=Moderate Pneumonia: Pseudomonal Risk: No known risk Antibiotic last taken at: 0600 JAYLEN FARNSWORTH DO May 12, 2017 11:33
--- NOTE | 2017-05-12 11:52 | Physical Therapy Evaluation ---
PT Evaluation-General Medical Diagnosis Admission Date May 08, 2017 at 07:04 Medical Diagnosis: weakness Onset Date: May 08, 2017 Therapy Diagnosis Therapy Diagnosis: impaired endurance Height/Weight Height (Feet): 5 Height (Inches): 5.00 Weight (Pounds): 224 Weight (Ounces): 6.0 Precautions Precautions/Isolations: Standard Precautions Referral Physician: Aarti Conti DO Reason for Referral: Evaluation/Treatment Medical History Pertinent Medical History: Smoking Current History Patient went to the ER with SOB, was found to have a pneumothorax and pneumonia , had a chest tube placed Social History unable to obtain at this time, he does not speak ethiopian Prior/Core FIM Prior Level of Function Functional [place] Measure 0=Not Assessed/NA 4=Minimal Assistance 1=Total Assistance 5=Supervision or Setup 2=Maximal Assistance 6=Modified [place] 3=Moderate Assistance 7=Complete [place] Bed Mobility: 7 Transfers (B,C,W/C) (FIM): 7 Gait: 7 Patient was I prior, obtained from chart history. PT Evaluation-Current Subjective Patient in recliner pre tx, agrees to PT, pleasant and cooperative but cannot speak ethiopian. He does indicate that he has no pain. Pt/Family Goals none stated Objective Patient Orientation: Unable to Assess Attachments: Oxygen 2L of O2 nasal canula. ROM/Strength ROM Lower Extremities WNL Strenght Lower Extremities 4+ to 5/5 Sensory Vision: Functional Hearing: Functional Sensation Right Lower Extremit: Intact Sensation Left Lower Extremity: Intact Transfers Functional [place] Measure 0=Not Assessed/NA 4=Minimal Assistance 1=Total Assistance 5=Supervision or Setup 2=Maximal Assistance 6=Modified [place] 3=Moderate Assistance 7=Complete [place] Transfers (B, C, W/C) (FIM): 7 Scootin Rollin Supine to/from Sit: 7 Sit to/from Stand: 7 Gait Gait (FIM): 7 Distance: 400' Gait Assistive Device: None Comments/Gait Description steady ambulation, just some decreased endurance, O2 stayed at 92% or above Balance Sitting Static: Normal Sitting Dynamic: Normal Standing Static: Normal Standing Dynamic: Normal Assessment/Needs Patient has good balance and strength, just some decreased endurance. Rehab Potential: Good PT Placement Manager Goals Placement Manager Goals PT Assisted Goals Time Frame: May 19, 2017 Gait (FIM): 7 Distance: 1000' Gait Assistive Device: None PT Plan Problem List Problem List: Activity Tolerance, Functional Strength, Safety, Gait Treatment/Plan Treatment Plan: Continue Plan of Care Treatment Plan: Education, Functional Activity Zachary, Functional Strength, Gait , Therapeutic Exercise Treatment Duration: May 19, 2017 Frequency: Daily Estimated Hrs Per Day: .5 hour per day Patient and/or Family Agrees t: Yes Safety Risks/Education Patient Education: Gait Training, Transfer Techniques, Correct Positioning, Safety Issues Teaching Recipient: Patient Teaching Methods: Demonstration, Discussion Response to Teaching: Reinforcement Needed Discharge Recommendations Plan Patient will perform bed mobility and transfer training, balance and endurance training, functional strengthening, gait training, stair training, and education to improve functional mobility and independence at home. Therapy D/C Recommendations: Home w/ Family Support Time/GCodes Time In: 1130 Time Out: 1145 Total Billed Treatment Time: 15 Total Billed Treatment 1 visit ALEKSANDER Olivares' OLIVIA ANGUIANO PT May 12, 2017 11:52
[2017-05-13] MEDS: ACETAMINOPHEN 500 MG TAB (TYLENOL) PO PRN (00:02)
[2017-05-13 00:16] VITALS: BP 136/81
[2017-05-13] MEDS: RT-ALBUTEROL/IPRATROPIUM 3 ML (DUONEB) VIAL INH SCH ×2 (02:27→10:36)
[2017-05-13] MEDS: PIPERACILLIN SODIUM/TAZOBACTAM 4.5 GM in NS (IVPB) 100 ML IV SCH (04:00)
[2017-05-13 04:23] LABS: BASOPHILS % (AUTO) 0 % (0-10); EOSINOPHILS # (AUTO) 0.6 10^3/uL (0.0-0.3); EOSINOPHILS % (AUTO) 6 % (0-10); LYMPHOCYTES # (AUTO) 2.2 X 10^3 (1.0-4.0); LYMPHOCYTES % (AUTO) 22 % (12-44); MEAN CORPUSCULAR HEMOGLOBIN 29 PG (25-34); MEAN CORPUSCULAR HGB CONC 33 G/DL (32-36); MEAN CORPUSCULAR VOLUME 87 FL (80-99); MEAN PLATELET VOLUME 9.2 FL (7.4-10.4); MONOCYTES # (AUTO) 0.9 X 10^3 (0.0-1.0); MONOCYTES % (AUTO) 9 % (0-12); NEUTROPHILS # (AUTO) 6.2 X 10^3 (1.8-7.8); NEUTROPHILS % (AUTO) 63 % (42-75); PLATELET COUNT 366 10^3/uL (130-400); RED BLOOD COUNT 3.82 10^6/uL (4.35-5.85); RED CELL DISTRIBUTION WIDTH 12.2 % (10.0-14.5); WHITE BLOOD COUNT 9.9 10^3/uL (4.3-11.0)
[2017-05-13 04:40] VITALS: BP 130/75
[2017-05-13 05:08] LABS: MAGNESIUM 2.2 MG/DL (1.8-2.4); PHOSPHORUS 4.5 MG/DL (2.3-4.7)
[2017-05-13] MEDS: NS IV 1000 ML 1,000 ML IV SCH (05:20)
[2017-05-13] MEDS: CATHETER FLUSH 10 ML SYR IV SCH (06:22)
--- NOTE | 2017-05-13 07:44 | Diagnostic Imaging Report ---
INDICATION: Pneumonia, sepsis. Portable chest 4:28 AM FINDINGS: There is volume loss at both lung bases. This could be due to infiltrate and/or atelectasis. Small effusions cannot be excluded. The appearance of the chest is unchanged from the previous day. IMPRESSION: Stable chest with basilar volume loss. Infiltrate, atelectasis and/or effusion could be present. Dictated by: Dictated on workstation # [id number]
[2017-05-13 08:00] VITALS: BP 131/75
[2017-05-13] MEDS: DOCUSATE SODIUM 100 MG (COLACE) CAP PO SCH (09:17)
[2017-05-13] MEDS: SENNA W/DOCUSATE (SENOKOT S) TABLET PO SCH (09:17)
--- NOTE | 2017-05-13 09:37 | Physical Therapy Progress Note ---
Therapy Progress Note Patient is up independent in room and hallway. No skilled PT indicated at this time. RN notified of PT dismissing patient from services. 1 visit. SUYAPA CHAVEZ PT May 13, 2017 09:37
--- NOTE | 2017-05-13 10:43 | Discharge Summary-Hospitalist ---
Diagnosis/Chief Complaint Date of Admission May 08, 2017 at 07:04 Date of Discharge Admission Diagnosis Assessment: Sepsis due to pneumonia and leukocytosis and fever and chills with pneumothorax chest tube placed Smoker Discharge Diagnosis Assessment: Sepsis due to pneumonia and leukocytosis and fever and chills with pneumothorax chest tube placed now DC Smoker 3ppd Leukocytosis Pleurisy services advisor: Pt going to the floor today Pt is doing well, but not walking much Pt was on 2 L through the night RT Review: Pt might need a stress test. Pt was at 81 within 3 minutes of exertion Pt needs 2 L on exertion, but pt was at 92 on room air Patient Interview: Pt is doing well and was sitting up in bed upon interview Pt confirms using IS Physical exam stable. Lungs sound good. Home O2 discussed. Encouragement given to ambulate DC was discussed much improved, VSS RRR, CTAB but significantly diminished overall No edema Assessment: Sepsis due to pneumonia and leukocytosis and fever and chills with pneumothorax chest tube placed now DC Smoker 3ppd Leukocytosis Pleurisy Plan: Ambulate PT 2 L O2 needed at DC orders placed Hopefully DC tomorrow Scribed by Odalis Love under the direct supervision of Dr. Rodriguez. 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 Nguyen consulted and CT scan ensued. No significant pulmonary emboli noted on CT scan but patient appears to have pneumonia with the pneumothorax including leukocytosis and sepsis and I did order pain medication but tachypnea continues to Dr. Atwood will be consulted. Patient has been placed on empiric robotic some Zosyn and will be monitor closely in the meantime. I am able to communicate with him in medical [place] enough to reassure him and updated him on the plan. Notes from 05/13/17 Chart Review: WBC 9.9 normal services advisor: Pt has not vocalized that he would like to DC Patient Interview: Home O2 was discussed and pt confirms understanding. O2 will be delivered to him at [facility] Pt confirms [facility] as pharmacy BMs discussed Physical exam stable. Lungs sound good. Pt confirms using IS. AFVSS, Pleasant, improved RRR, CTAB diminished in the bases No edema nl ROM Plan: Meds to [facility] Home O2 Scribed by Odalis Love under the direct supervision of Dr. Rodriguez. Hospital course: Patient had a lengthy hospital course. He was admitted due to sepsis and pneumonia and PTX which required CT placement in ER and pulmonary consultation ensued. Pt was managed in ICU and closely monitored and placed on empiric abx. Smoking cessation was counseled. Pt did require home O2 on exertion and had completed abx while in-pt. [facility] establishment of care was recommended. Discharge Summary Discharge Physical Examination Allergies: Coded Allergies: No Known Drug Allergies (Unverified , 05/08/17) Vitals & I&Os Vital Signs Date Time Temp Pulse Resp B/P (MAP) Pulse Ox O2 Delivery O2 Flow Rate FiO2 05/13/17 10:36 94 Nasal Cannula 2.00 05/13/17 08:00 97.0 86 20 131/75 Hospital Course Labs (last 24 hrs) Laboratory Tests 05/13/17 04:13: White Blood Count 9.9, Red Blood Count 3.82L, Hemoglobin 10.9L, Hematocrit 33L, Mean Corpuscular Volume 87, Mean Corpuscular Hemoglobin 29, Mean Corpuscular Hemoglobin Concent 33, Red Cell Distribution Width 12.2, Platelet Count 366, Mean Platelet Volume 9.2, Neutrophils (%) (Auto) 63, Lymphocytes (%) (Auto) 22, Monocytes (%) (Auto) 9, Eosinophils (%) (Auto) 6, Basophils (%) (Auto) 0, Neutrophils # (Auto) 6.2, Lymphocytes # (Auto) 2.2, Monocytes # (Auto) 0.9, Eosinophils # (Auto) 0.6H, Basophils # (Auto) 0.0, Phosphorus Level 4.5, Magnesium Level 2.2 Microbiology 05/08/17 Blood Culture - Preliminary, Resulted No growth 05/10/17 Gram Stain - Final, Resulted 05/10/17 Body Fluid Culture - Preliminary, Resulted No growth Pending Labs Laboratory Tests 05/13/17 04:13: White Blood Count 9.9, Red Blood Count 3.82, Hemoglobin 10.9, Hematocrit 33, Mean Corpuscular Volume 87, Mean Corpuscular Hemoglobin 29, Mean Corpuscular Hemoglobin Concent 33, Red Cell Distribution Width 12.2, Platelet Count 366, Mean Platelet Volume 9.2, Neutrophils (%) (Auto) 63, Lymphocytes (%) (Auto) 22, Monocytes (%) (Auto) 9, Eosinophils (%) (Auto) 6, Basophils (%) (Auto) 0, Neutrophils # (Auto) 6.2, Lymphocytes # (Auto) 2.2, Monocytes # (Auto) 0.9, Eosinophils # (Auto) 0.6, Basophils # (Auto) 0.0, Phosphorus Level 4.5, Magnesium Level 2.2 Discharge Home Medications: Active Scripts Active Reported Ibuprofen 200 Mg Tablet 600 Mg PO Q6H PRN TAKES 3 (200 MG) TABLETS Instructions to patient/family Please see electonic discharge instructions given to patient. Clinical Quality Measures DVT/VTE Risk/Contraindication: Risk Factor Score Per Nursin RFS Level Per Nursing on Admit: 2=Moderate Pneumonia: Pseudomonal Risk: No known risk Antibiotic last taken at: 0600 JOYCE RODRIGUEZ DO May 13, 2017 10:43
--- NOTE | 2017-05-13 11:15 | Pulmonary Progress Note ---
Subjective Time Seen by Provider: 11:10 Subjective/Events-last exam Pt feels improved Exam Exam Vital Signs Date Time Temp Pulse Resp B/P (MAP) Pulse Ox O2 Delivery O2 Flow Rate FiO2 05/13/17 10:36 94 Nasal Cannula 2.00 05/13/17 08:40 Nasal Cannula 1.50 05/13/17 08:00 97.0 86 20 131/75 95 Nasal Cannula 2.00 05/13/17 04:40 97.8 101 22 130/75 95 Nasal Cannula 2.00 05/13/17 02:45 99.4 05/13/17 02:28 97 Nasal Cannula 2.00 05/13/17 01:53 100.1 05/13/17 01:52 100.1 05/13/17 00:16 100.7 104 22 136/81 95 Nasal Cannula 2.00 05/13/17 00:02 100.7 05/12/17 21:00 96 Nasal Cannula 2.00 05/12/17 20:00 99.3 104 22 135/80 96 Nasal Cannula 2.00 05/12/17 20:00 96 Nasal Cannula 2.00 05/12/17 16:00 98.1 109 22 132/80 95 Room Air 1.50 05/12/17 16:00 98.1 109 22 132/80 95 Nasal Cannula 2.00 05/12/17 15:43 Nasal Cannula 2.00 05/12/17 14:50 98.8 115 25 132/77 94 Nasal Cannula 2.00 05/12/17 14:28 94 Nasal Cannula 2.00 05/12/17 12:00 115/95 95 Nasal Cannula 2.00 05/12/17 11:24 96.2 97 18 104/73 96 Nasal Cannula 2.00 05/12/17 11:23 96 Nasal Cannula 2.00 I & O 05/13/17 07:00 Intake Total 2510 ml Output Total 500 ml Balance 2010 ml General Appearance: No Apparent Distress, WD/WN HEENT: PERRL/EOMI, Normal ENT Inspection, Pharynx Normal Neck: Full Range of Motion, Normal Inspection, Non Tender, Supple, Carotid Bruit Respiratory: Chest Non Tender, No Accessory Muscle Use, No Respiratory Distress , Decreased Breath Sounds Cardiovascular: Regular Rate, Rhythm, No Edema, No Gallop, No JVD, No Murmur, Normal Peripheral Pulses Capillary Refill: Less Than 3 Seconds Peripheral Pulses: 3+ Dorsalis Pedis (R), 3+ Left Dors-Pedis (L), 3+ Radial Pulses (R), 3+ Radial Pulses (L) Gastrointestinal: non tender, soft, no organomegaly Extremity: Normal Capillary Refill, Normal Inspection, Normal Range of Motion, Non Tender, No Calf Tenderness, No Pedal Edema Neurologic/Psychiatric: Alert, Oriented x3, No Motor/Sensory Deficits, Normal Mood/Affect Skin: Normal Color, Warm/Dry Lymphatic: No Adenopathy Results Lab Laboratory Tests 05/12/17 03:24 05/13/17 04:13 Assessment/Plan Assessment/Plan Left PTX s/p chest tube pulmonary edema/pleural effusion and atelectasis- improving Pneumonia with sepsis (not severe sepsis) -Martinez culture neg -Abx currently on Zosyn -hep lock IVF -Daily labs/CXR -IS DVT ppx -SCDs -start Lovenox tomorrow morning 232 pt is feeling improved Clinical Quality Measures DVT/VTE Risk/Contraindication: Risk Factor Score Per Nursin RFS Level Per Nursing on Admit: 2=Moderate Pneumonia: Pseudomonal Risk: No known risk Antibiotic last taken at: 0600 JAYLEN FARNSWORTH DO May 13, 2017 11:15
[2017-05-13 12:00] VITALS: BP 131/82
== END 2017-05-13 13:00 | disposition home or self-care (01) | DRG 871 ==
LOC: ER 02:14 → ICU 07:04 → 4TH 05-12 15:10
PROVIDERS: ADMIT Internal Medicine; ATTEND Internal Medicine
PROC: 0W9B30Z Drainage of Left Pleural Cavity with Drainage Device, Percutaneous Approach (ICD-10-PCS; principal; 2017-05-08)
DX: A41.9 Sepsis, unspecified organism (principal); J18.9 Pneumonia, unspecified organism; J90 Pleural effusion, not elsewhere classified; F17.210 Nicotine dependence, cigarettes, uncomplicated; J98.11 Atelectasis; D72.829 Elevated white blood cell count, unspecified; J93.9 Pneumothorax, unspecified; J81.1 Chronic pulmonary edema
CPT/HCPCS: 32551; 36415; 71010; 71020; 71275; 80048; 80053; 80202; 81000; 83605; 83735; 84100; 84484; 85007; 85025; 85027; 85379; 85610; 85730; 87040; 87070; 87205; 93005; 93306; 94640; 94664; 94760; 94761; 96361; 96374

== ENCOUNTER → 2017-06-08 | Outpatient (CLI) | payer OTHER ==
[~2017-06-08] MED LIST: IBUP-2055 PO
--- NOTE | 2017-06-08 14:47 | Diagnostic Imaging Report ---
PROCEDURE: CT chest without contrast. TECHNIQUE: Multiple contiguous axial images were obtained through the chest without the use of intravenous contrast. INDICATION: Asthma. FINDINGS: There are areas of consolidation seen in the lower lobes in a pattern favoring atelectasis. There are overall low lung volumes. There is no lung mass or suspicious nodule seen. There is no pericardial or pleural effusion. The thoracic aorta is normal in caliber. There is no mediastinal mass or lymphadenopathy. The hilar vessels are not opacified on this unenhanced exam with no obvious hilar mass seen. There is no axillary lymphadenopathy noted. Sections of the upper abdomen appear unremarkable. The osseous structures appear grossly unremarkable. IMPRESSION: There are low lung volumes. Bilateral patchy subsegmental areas of consolidation are favored to be atelectasis rather than pneumonia. Dictated by: Dictated on workstation # [id number]
== END ==
LOC: RAD 13:40
PROVIDERS: ATTEND Nurse Practitioner Family
DX: J98.11 Atelectasis (principal); R06.00 Dyspnea, unspecified; F17.210 Nicotine dependence, cigarettes, uncomplicated
CPT/HCPCS: 71250

== ENCOUNTER → 2017-06-18 | Outpatient (CLI) | payer OTHER ==
[~2017-06-18] MED LIST changes: +RT-ALBUTEROL SULF 2.5 MG/3 ML PRE-MIX VIAL IH ONE
== END ==
LOC: RT 12:46
PROVIDERS: ATTEND Nurse Practitioner Family
DX: J18.9 Pneumonia, unspecified organism (principal); J93.9 Pneumothorax, unspecified; R06.00 Dyspnea, unspecified; R06.2 Wheezing; F17.201 Nicotine dependence, unspecified, in remission
CPT/HCPCS: 94060; 94640; 94726; 94729